=== PATIENT | female | born 1985 | race Caucasian/White ===

== ENCOUNTER 2016-06-19 13:07 | Emergency (ER) | payer MEDICAID ==
[~2016-06-19] VITALS: Ht 152.4 cm; Wt 76.7 kg
[~2016-06-19 13:07] MED LIST: ARIP5TAB13; ATOM40CA; CARI250T8; FLUT0.0531; GABA600T; IBUP800T41; LORA-655; LORANTIDINE; SERT-135; SOMA; TRAM-297; VENL25TA2
[2016-06-19] MEDS ORDERED: SODIUM CHLORIDE 0.9% 1,000 ML IV ONE (14:12)
[2016-06-19 14:13] LABS: Basophils # (auto) 0 uL; Basophils % (auto) 0.8 % (0.0-2.0); Eosinophils # (auto) 0 uL; Hematocrit 37.7 % (36.0-46.0); Hemoglobin 12.4 g/dL (12.2-16.2); Lymphocytes % (auto) 31.8 % (10.0-50.0); Mean Corpuscular Hemoglobin 27.3 pg (28.0-32.0); Mean Corpuscular Hgb Conc. 32.9 g/dL (32.0-36.0); Mean Corpuscular Volume 82.8 fL (80.0-100.0); Mean Platelet Volume 7.9 fL (7.4-10.4); Monocytes # (auto) 0.6 uL; Monocytes % (auto) 9.8 % (0.0-12.0); Neutrophils # (auto) 3.7 uL; Neutrophils % (auto) 57.6 % (37.0-80.0); Platelet Count (auto) 386 10^3/uL (140-450); Red Cell Distribution Width 13.6 % (11.6-16.0); White Blood Cell 6.4 10^3/uL (4.4-10.8)
[2016-06-19 14:28] LABS: Acetaminophen < 2.0 ug/mL (10-30); Salicylate < 1.7 mg/dL (2.8-20.0)
[2016-06-19 14:40] LABS: Alkaline Phosphatase 51 U/L (45-117); Anion Gap 11 (5-15); Aspartate Aminotransferase 24 U/L (15-37); BUN/Creatinine Ratio 22.4; Bilirubin, Total 0.3 mg/dL (0.2-1.0); Blood Urea Nitrogen 15 mg/dL (7-18); Carbon Dioxide 25 mmol/L (21-32); Chloride 110 mmol/L (98-107); GFR African American 133 mL/min; GFR Non-African American 110 mL/min; Glucose 82 mg/dL (74-106); Potassium 3.9 mmol/L (3.5-5.1); Sodium 146 mmol/L (136-145); Total Protein 7.3 g/dL (6.4-8.2)
[2016-06-19] MEDS ORDERED: ONDANSETRON HCL 4 MG/2 ML VIAL ONE (15:52)
[2016-06-19] MEDS ORDERED: ONDANSETRON HCL 4 MG/2 ML VIAL IV ONE (16:00)
[2016-06-19 18:11] LABS: Urine Bilirubin Negative (Negative); Urine Blood Negative /uL (Negative); Urine Color Yellow (Yellow); Urine Glucose Normal (Normal); Urine Ketone Negative (Negative); Urine Nitrite Negative (Negative); Urine RBC <1 /hpf (0 - 4); Urine Squamous Epithelial Cell FEW /hpf (<5); Urine Urobilinogen Normal (Negative)
[2016-06-19] MEDS ORDERED: LORazepam 0.5 MG TAB PO ONE (19:45)
[2016-06-19] MEDS: LORazepam 0.5 MG TAB PO PRN (20:44)
[2016-06-19] MEDS: OLANZapine 5 MG TAB PO SCH (22:00)
[2016-06-19] MEDS: GABAPENTIN 300 MG CAP PO SCH (22:50)
[2016-06-19] MEDS: clonazePAM 0.5 MG TAB PO SCH (22:50)
[2016-06-19] MEDS: NAPROXEN 500 MG TAB PO SCH (22:50)
[2016-06-20] MEDS: GABAPENTIN 300 MG CAP PO SCH ×3 (05:59→22:54)
[2016-06-20] MEDS: clonazePAM 0.5 MG TAB PO SCH ×3 (05:59→22:53)
[2016-06-20] MEDS ORDERED: traMADol HCL 50 MG TAB PO ONE (09:00)
[2016-06-20] MEDS: NAPROXEN 500 MG TAB PO SCH ×2 (10:03→22:53)
[2016-06-20] MEDS: traMADol HCL 50 MG TAB PO PRN ×2 (13:05→17:40)
[2016-06-20] MEDS: LORazepam 0.5 MG TAB PO PRN (19:21)
[2016-06-20] MEDS: OLANZapine 5 MG TAB PO SCH (22:54)
[2016-06-21] MEDS: LORazepam 0.5 MG TAB PO PRN ×2 (02:42→10:21)
[2016-06-21] MEDS: traMADol HCL 50 MG TAB PO PRN (03:08)
[2016-06-21] MEDS: GABAPENTIN 300 MG CAP PO SCH (06:23)
[2016-06-21] MEDS: clonazePAM 0.5 MG TAB PO SCH (06:23)
[2016-06-21] MEDS ORDERED: LORazepam 0.5 MG TAB ONE (10:15)
[2016-06-21] MEDS: NAPROXEN 500 MG TAB PO SCH (10:16)
[2016-06-21 12:46] VITALS: BP 104/64
== END 2016-06-21 12:56 | disposition short-term general hospital (02) ==
LOC: EDBD 13:07 → ER 13:07 → EDUNIT# 13:07 → ER 06-21 12:56
DX: F31.9 Bipolar disorder, unspecified (principal); N39.0 Urinary tract infection, site not specified; F41.9 Anxiety disorder, unspecified; J45.909 Unspecified asthma, uncomplicated; R45.851 Suicidal ideations
CPT/HCPCS: 36415; 80053; 80320; 80329; 81001; 84702; 85025; 93005; 94761; 96361; 96374; 99285; G0434; J2405; J7030

== ENCOUNTER 2016-08-10 13:00 | Emergency (ER) | payer MEDICAID ==
[~2016-08-10] VITALS: Ht 152.4 cm; Wt 73.9 kg
[2016-08-10 13:26] VITALS: BP 132/80
[2016-08-10] MEDS ORDERED: KETOROLAC TROMETH 60MG/2ML VIAL IM ONE (13:45)
== END 2016-08-10 14:14 | disposition home or self-care (01) ==
LOC: ER 13:11
DX: G89.29 Other chronic pain (principal); M54.5 Low back pain; J45.909 Unspecified asthma, uncomplicated; Z87.440 Personal history of urinary (tract) infections; Z79.899 Other long term (current) drug therapy
CPT/HCPCS: 96372; 99283; J1885

== ENCOUNTER 2016-09-14 15:48 | Emergency (ER) | payer MEDICAID ==
[~2016-09-14] VITALS: Ht 152.4 cm; Wt 73.9 kg
[~2016-09-14 15:48] MED LIST changes: +CARI250T; -CARI250T8
[2016-09-14 16:32] VITALS: BP 119/73
[2016-09-14] MEDS ORDERED: KETOROLAC TROMETH 60MG/2ML VIAL IM ONE (17:00)
== END 2016-09-14 17:26 | disposition home or self-care (01) ==
LOC: ER 15:48
DX: G89.29 Other chronic pain (principal); M54.5 Low back pain; J45.909 Unspecified asthma, uncomplicated; Z87.440 Personal history of urinary (tract) infections; Z79.899 Other long term (current) drug therapy
CPT/HCPCS: 96372; 99283; J1885

== ENCOUNTER 2016-11-21 17:01 | Emergency (ER) | payer MEDICAID ==
[~2016-11-21] VITALS: Ht 152.4 cm; Wt 78.5 kg
[2016-11-21 17:08] VITALS: BP 138/90
[2016-11-21] MEDS ORDERED: KETOROLAC TROMETH 60MG/2ML VIAL IM ONE (19:45)
== END 2016-11-21 20:18 | disposition home or self-care (01) ==
LOC: ER 17:11
DX: G89.29 Other chronic pain (principal); M54.5 Low back pain; J45.909 Unspecified asthma, uncomplicated; Z98.51 Tubal ligation status; Z88.8 Allergy status to other drugs, medicaments and biological substances
CPT/HCPCS: 96372; 99283; J1885

== ENCOUNTER 2016-12-28 18:45 | Emergency (ER) | payer MEDICAID ==
[~2016-12-28] VITALS: Ht 152.4 cm; Wt 78.5 kg
[2016-12-28 20:02] LABS: Basophils # (auto) 0 uL; Basophils % (auto) 0.2 % (0.0-2.0); Eosinophils # (auto) 0 uL; Eosinophils % (auto) 0.3 % (0.0-7.0); Hematocrit 36.1 % (36.0-46.0); Lymphocytes # (auto) 1.2 uL; Lymphocytes % (auto) 26.4 % (10.0-50.0); Mean Corpuscular Hemoglobin 28.1 pg (28.0-32.0); Mean Corpuscular Hgb Conc. 33.3 g/dL (32.0-36.0); Mean Corpuscular Volume 84.5 fL (80.0-100.0); Mean Platelet Volume 7.2 fL (6.9-10.8); Monocytes # (auto) 0.4 uL; Monocytes % (auto) 10.3 % (0.0-12.0); Neutrophils # (auto) 2.7 uL; Neutrophils % (auto) 62.8 % (37.0-80.0); Nucleated Red Blood Cells % 0.1 %; Platelet Count (auto) 316 10^3/uL (140-450); Red Cell Distribution Width 12.7 % (11.8-14.3); White Blood Cell 4.4 10^3/uL (4.4-10.8)
[2016-12-28 20:18] LABS: Salicylate 2.3 mg/dL (2.8-20.0)
[2016-12-28 20:22] LABS: Acetaminophen < 2.0 ug/mL (10-30); Albumin 3.9 g/dL (3.4-5.0); Alkaline Phosphatase 56 U/L (45-117); Anion Gap 8 (5-15); Aspartate Aminotransferase 44 U/L (15-37); BUN/Creatinine Ratio 10.8; Bilirubin, Total 0.2 mg/dL (0.2-1.0); Blood Urea Nitrogen 8 mg/dL (7-18); Calcium 8.7 mg/dL (8.5-10.1); Carbon Dioxide 27 mmol/L (21-32); Chloride 98 mmol/L (98-107); GFR African American 118 mL/min; GFR Non-African American 97 mL/min; Glucose 100 mg/dL (74-106); Potassium 3.5 mmol/L (3.5-5.1); Sodium 133 mmol/L (136-145); Total Protein 7.1 g/dL (6.4-8.2)
[2016-12-28 21:00] LABS: Urine RBC None Seen /hpf (0 - 4)
[2016-12-28 21:24] LABS: Urine Bilirubin Negative (Negative); Urine Blood Negative /uL (Negative); Urine Color Yellow (Yellow); Urine Glucose Normal (Normal); Urine Ketone Negative (Negative); Urine Nitrite Negative (Negative); Urine Squamous Epithelial Cell FEW /hpf (<5); Urine Urobilinogen Normal (Negative); Urine pH 6.5 (5.0-8.0)
[2016-12-29] MEDS ORDERED: IBUPROFEN 600 MG TAB PO ONE ×2 (00:15→07:00)
[2016-12-29] MEDS: traMADol HCL 50 MG TAB PO SCH ×3 (08:00→23:17)
[2016-12-29] MEDS: CITALOPRAM HYDROBR 20 MG TAB PO SCH ×2 (10:00→23:17)
[2016-12-29] MEDS: GABAPENTIN 300 MG CAP PO SCH ×2 (14:08→23:17)
[2016-12-29] MEDS ORDERED: NITROFURANTOIN (MONO) 100 mg CAP PO ONE (14:15)
[2016-12-29] MEDS ORDERED: traZODone HCL 50 MG TAB PO SCH (22:00)
[2016-12-29] MEDS: NITROFURANTOIN (MONO) 100 mg CAP PO SCH (23:17)
[2016-12-30] MEDS ORDERED: GABAPENTIN 100 MG CAP ONE (05:57)
[2016-12-30] MEDS: GABAPENTIN 300 MG CAP PO SCH ×2 (06:03→15:20)
[2016-12-30] MEDS: traMADol HCL 50 MG TAB PO SCH ×2 (06:03→15:20)
[2016-12-30] MEDS: NITROFURANTOIN (MONO) 100 mg CAP PO SCH (10:35)
[2016-12-30 18:38] VITALS: BP 118/76
== END 2016-12-30 18:52 | disposition home or self-care (01) ==
LOC: ER 18:47
DX: F23 Brief psychotic disorder (principal); S61.512A Laceration without foreign body of left wrist, initial encounter; N39.0 Urinary tract infection, site not specified; J45.909 Unspecified asthma, uncomplicated; F41.9 Anxiety disorder, unspecified; F32.9 Major depressive disorder, single episode, unspecified; G89.29 Other chronic pain; M54.9 Dorsalgia, unspecified; Z98.51 Tubal ligation status; X78.9XXA Intentional self-harm by unspecified sharp object, initial encounter; Y93.89 Activity, other specified; Y92.89 Other specified places as the place of occurrence of the external cause; Y99.8 Other external cause status
CPT/HCPCS: 36415; 80053; 80307; 80320; 80329; 81001; 81025; 85025

== ENCOUNTER 2017-01-18 19:24 | Emergency (ER) | payer MEDICAID ==
[~2017-01-18] VITALS: Ht 152.4 cm; Wt 78.9 kg
[2017-01-18 19:30] VITALS: BP 139/70
== END 2017-01-18 20:40 | disposition left against medical advice (07) ==
LOC: ER 19:25
DX: T78.40XA Allergy, unspecified, initial encounter (principal); Z53.21 Procedure and treatment not carried out due to patient leaving prior to being seen by health care provider

== ENCOUNTER 2017-02-18 11:48 | Emergency (ER) | payer MEDICAID ==
[~2017-02-18] VITALS: Ht 165.1 cm; Wt 77.1 kg
[2017-02-18 12:16] VITALS: BP 126/74
[2017-02-18] MEDS ORDERED: KETOROLAC TROMETH 60MG/2ML VIAL IM ONE (12:30)
== END 2017-02-18 12:59 | disposition home or self-care (01) ==
LOC: ER 11:48 → EDUNIT# 11:48 → ER 12:59
DX: S39.012A Strain of muscle, fascia and tendon of lower back, initial encounter (principal); G89.29 Other chronic pain; J45.909 Unspecified asthma, uncomplicated; Z88.8 Allergy status to other drugs, medicaments and biological substances; W19.XXXA Unspecified fall, initial encounter; Y93.89 Activity, other specified; Y92.89 Other specified places as the place of occurrence of the external cause; Y99.8 Other external cause status
CPT/HCPCS: 96372; 99283; J1885

== ENCOUNTER 2017-03-31 18:41 | Emergency (ER) | payer MEDICAID ==
[~2017-03-31] VITALS: Ht 154.9 cm; Wt 77.6 kg
[2017-03-31 20:20] LABS: Basophils # (auto) 0 uL; Eosinophils # (auto) 0 uL; Hemoglobin 11.7 g/dL (12.2-16.2); Lymphocytes # (auto) 0.9 uL; Monocytes # (auto) 0.5 uL; Neutrophils # (auto) 6.4 uL; Nucleated Red Blood Cells % 0.1 %; White Blood Cell 7.8 10^3/uL (4.4-10.8)
[2017-03-31 20:22] LABS: Basophils % (auto) 0.2 % (0.0-2.0); Eosinophils % (auto) 0.2 % (0.0-7.0); Hematocrit 35.6 % (36.0-46.0); Mean Corpuscular Hemoglobin 26.5 pg (28.0-32.0); Mean Corpuscular Hgb Conc. 32.8 g/dL (32.0-36.0); Mean Corpuscular Volume 80.9 fL (80.0-100.0); Monocytes % (auto) 6.6 % (0.0-12.0); Platelet Count (auto) 421 10^3/uL (140-450); Red Cell Distribution Width 14.7 % (11.8-14.3)
[2017-03-31 20:36] LABS: Bilirubin, Total 0.2 mg/dL (0.2-1.0); Calcium 8.9 mg/dL (8.5-10.1); Potassium 4.1 mmol/L (3.5-5.1); Total Protein 7.9 g/dL (6.4-8.2)
[2017-03-31 20:36] LABS: Urine Bacteria FEW /hpf (None Seen); Urine Blood Negative /uL (Negative); Urine Specific Gravity 1.009 (1.001-1.035); Urine WBC 1 /hpf (0 - 5)
[2017-04-01] MEDS ORDERED: SODIUM CHLORIDE 0.9% 500 ML IV ONE (08:51)
[2017-04-01] MEDS ORDERED: PANTOPRAZOLE 40 MG/10 ML VIAL IV ONE (09:00)
[2017-04-01] MEDS ORDERED: ONDANSETRON HCL 4 MG/2 ML VIAL IV ONE (09:00)
[2017-04-01] MEDS ORDERED: metroNIDAZOLE 500MG/100ML 100 ML IV ONE (09:00)
[2017-04-01 09:24] VITALS: BP 135/85
[2017-04-01] MEDS ORDERED: HYDROcodone-ACET 5/325MG TAB PO ONE (10:45)
== END 2017-04-01 11:26 | disposition home or self-care (01) ==
LOC: ER 18:46
DX: R10.13 Epigastric pain (principal); Z83.3 Family history of diabetes mellitus; Z82.49 Family history of ischemic heart disease and other diseases of the circulatory system
CPT/HCPCS: 36415; 74176; 80053; 81001; 81025; 82150; 83690; 85025; 86677; 96365; 96375; 99285; C9113; J2405; J3490; J7040

== ENCOUNTER 2017-04-21 15:33 | Emergency (ER) | payer MEDICAID ==
[~2017-04-21] VITALS: Ht 152.4 cm; Wt 74.8 kg
[2017-04-21] MEDS ORDERED: KETOROLAC TROMETH 60MG/2ML VIAL IM ONE (17:45)
[2017-04-21 19:44] VITALS: BP 110/60
== END 2017-04-21 20:18 | disposition home or self-care (01) ==
LOC: ER 15:39
DX: G89.29 Other chronic pain (principal); M54.5 Low back pain; J45.909 Unspecified asthma, uncomplicated; E78.5 Hyperlipidemia, unspecified; Z79.899 Other long term (current) drug therapy; Z04.1 Encounter for examination and observation following transport accident; V89.2XXA Person injured in unspecified motor-vehicle accident, traffic, initial encounter; Y93.89 Activity, other specified; Y99.8 Other external cause status; Y92.410 Unspecified street and highway as the place of occurrence of the external cause
CPT/HCPCS: 72100; 96372; 99284; J1885

== ENCOUNTER 2017-08-24 19:03 | Emergency (ER) | payer MEDICAID ==
[~2017-08-24] VITALS: Ht 152.4 cm; Wt 806.9 kg
[2017-08-24 20:13] LABS: Urine Bacteria FEW /hpf (None Seen); Urine Blood Negative /uL (Negative); Urine Specific Gravity 1.005 (1.001-1.035); Urine WBC <1 /hpf (0 - 5)
[2017-08-24 20:23] LABS: Basophils # (auto) 0 uL; Basophils % (auto) 0.5 % (0.0-2.0); Eosinophils # (auto) 0 uL; Eosinophils % (auto) 0.4 % (0.0-7.0); Hematocrit 38.8 % (36.0-46.0); Hemoglobin 12.8 g/dL (12.2-16.2); Lymphocytes % (auto) 39.9 % (10.0-50.0); Mean Corpuscular Hemoglobin 27.3 pg (28.0-32.0); Mean Corpuscular Hgb Conc. 32.9 g/dL (32.0-36.0); Monocytes # (auto) 0.6 uL; Monocytes % (auto) 11.1 % (0.0-12.0); Neutrophils # (auto) 2.5 uL; Neutrophils % (auto) 48.1 % (37.0-80.0); Nucleated Red Blood Cells % 0.1 %; Platelet Count (auto) 302 10^3/uL (140-450); Red Blood Cells 4.68 10^6/uL (4.0-5.20); Red Cell Distribution Width 14.1 % (11.8-14.3); White Blood Cell 5.1 10^3/uL (4.4-10.8)
[2017-08-24] MEDS ORDERED: HYDROcodone-ACET 10/325MG TAB PO ONE (20:45)
[2017-08-24 20:46] LABS: Albumin 3.7 g/dL (3.4-5.0); BUN/Creatinine Ratio 6.7; Bilirubin, Total 0.1 mg/dL (0.2-1.0); Calcium 9.1 mg/dL (8.5-10.1); Potassium 3.9 mmol/L (3.5-5.1); Total Protein 7.6 g/dL (6.4-8.2)
[2017-08-24 21:39] VITALS: BP 111/66
== END 2017-08-24 21:41 | disposition home or self-care (01) ==
LOC: ER 19:03
DX: R10.30 Lower abdominal pain, unspecified (principal); J45.909 Unspecified asthma, uncomplicated; E78.5 Hyperlipidemia, unspecified; Z98.51 Tubal ligation status
CPT/HCPCS: 36415; 74176; 80053; 81001; 81025; 85025

== ENCOUNTER 2017-11-17 16:57 | Inpatient (IN) | payer MEDICAID ==
[~2017-11-17] VITALS: Ht 152.4 cm; Wt 81.0 kg
[2017-11-17 17:49] LABS: Basophils # (auto) 0 uL; Basophils % (auto) 0.7 % (0.0-2.0); Eosinophils # (auto) 0 uL; Eosinophils % (auto) 0.3 % (0.0-7.0); Hematocrit 39.1 % (36.0-46.0); Hemoglobin 12.8 g/dL (12.2-16.2); Lymphocytes # (auto) 2.1 uL; Lymphocytes % (auto) 34.5 % (10.0-50.0); Mean Corpuscular Hemoglobin 27.1 pg (28.0-32.0); Mean Corpuscular Hgb Conc. 32.8 g/dL (32.0-36.0); Mean Corpuscular Volume 82.5 fL (80.0-100.0); Monocytes # (auto) 0.6 uL; Monocytes % (auto) 10.6 % (0.0-12.0); Neutrophils # (auto) 3.3 uL; Neutrophils % (auto) 53.9 % (37.0-80.0); Nucleated Red Blood Cells % 0.2 %; Platelet Count (auto) 276 10^3/uL (140-450); Red Blood Cells 4.74 10^6/uL (4.0-5.20); Red Cell Distribution Width 15.1 % (11.8-14.3); White Blood Cell 6.1 10^3/uL (4.4-10.8)
[2017-11-17 17:52] LABS: Urine Bacteria NONE SEEN /hpf (None Seen); Urine Blood Negative /uL (Negative); Urine Specific Gravity 1.002 (1.001-1.035); Urine WBC <1 /hpf (0 - 5)
[2017-11-17 18:04] LABS: Albumin 3.7 g/dL (3.4-5.0); BUN/Creatinine Ratio 4.8; Calcium 8.6 mg/dL (8.5-10.1); Potassium 3.6 mmol/L (3.5-5.1)
[2017-11-17 18:07] LABS: Bilirubin, Total 0.3 mg/dL (0.2-1.0); Total Protein 7.8 g/dL (6.4-8.2)
[2017-11-18] MEDS ORDERED: metroNIDAZOLE 500 MG TAB PO ONE (00:45)
[2017-11-18] MEDS ORDERED: cefTRIAXone 1GM/10ml IVPUSH 10 ML IV ONE (00:45)
[2017-11-18 01:42] LABS: Hematocrit 35.6 % (36.0-46.0)
[2017-11-18] MEDS ORDERED: ONDANSETRON HCL 4 MG/2 ML VIAL IV PRN (03:15)
[2017-11-18] MEDS ORDERED: ACETAMINOPHEN 325 MG TAB PO PRN (03:15)
[2017-11-18] MEDS: SODIUM CHLORIDE 0.9% 1,000 ML IV SCH ×2 (03:36→18:01)
[2017-11-18 05:00] VITALS: BP 101/71
[2017-11-18 05:03] VITALS: BP 101/71
[2017-11-18] MEDS ORDERED: GABA-339 PO (05:35)
[2017-11-18] MEDS ORDERED: RISP0.2512 PO (05:35)
[2017-11-18] MEDS ORDERED: [UNRECOGNIZED DRUG - CODE] PO (05:35)
[2017-11-18] MEDS ORDERED: DIVA500T53 PO (05:35)
[2017-11-18] MEDS ORDERED: TRAM50TA2 PO (05:35)
[2017-11-18] MEDS ORDERED: FENO48TA6 PO (05:35)
[2017-11-18] MEDS ORDERED: OMEP20TA PO (05:35)
[2017-11-18] MEDS ORDERED: AMIT50TA3 PO (05:35)
[2017-11-18] MEDS ORDERED: DOCU-94 PO (05:35)
[2017-11-18] MEDS ORDERED: ALBUAER3 IN (05:35)
[2017-11-18 08:15] LABS: Hematocrit 39.1 % (36.0-46.0); Hemoglobin 12.9 g/dL (12.2-16.2)
[2017-11-18] MEDS: HYDROcodone-ACET 5/325MG TAB PO PRN ×2 (09:43→18:29)
[2017-11-18 10:00] VITALS: BP 117/78
[2017-11-18] MEDS ORDERED: PANTOPRAZOLE 40 MG/10 ML VIAL IV SCH (10:00)
[2017-11-18 12:50] VITALS: BP 121/61
[2017-11-18] MEDS ORDERED: GOLYTELY 4L KIT PO ONE (15:15)
[2017-11-18 17:00] VITALS: BP 120/74
[2017-11-18] MEDS ORDERED: AMITRIPTYLINE HCL 25 MG TAB PO SCH (22:00)
[2017-11-18] MEDS: risperiDONE 1 MG TAB PO SCH (22:25)
[2017-11-18 22:43] VITALS: BP 116/87
[2017-11-19] MEDS: SODIUM CHLORIDE 0.9% 1,000 ML IV SCH (03:31)
[2017-11-19] MEDS: HYDROcodone-ACET 5/325MG TAB PO PRN (03:32)
[2017-11-19 05:17] VITALS: BP 124/73
[2017-11-19] MEDS ORDERED: GOLYTELY 4L KIT PO ONE (06:00)
[2017-11-19 06:54] LABS: Basophils # (auto) 0 uL; Basophils % (auto) 0.2 % (0.0-2.0); Eosinophils # (auto) 0 uL; Eosinophils % (auto) 0.1 % (0.0-7.0); Hematocrit 40.6 % (36.0-46.0); Hemoglobin 13.7 g/dL (12.2-16.2); Lymphocytes # (auto) 1.5 uL; Lymphocytes % (auto) 30.9 % (10.0-50.0); Mean Corpuscular Hemoglobin 27.8 pg (28.0-32.0); Mean Corpuscular Hgb Conc. 33.7 g/dL (32.0-36.0); Mean Corpuscular Volume 82.7 fL (80.0-100.0); Monocytes # (auto) 0.5 uL; Monocytes % (auto) 9.7 % (0.0-12.0); Neutrophils # (auto) 2.9 uL; Neutrophils % (auto) 59.1 % (37.0-80.0); Nucleated Red Blood Cells % 0.1 %; Platelet Count (auto) 266 10^3/uL (140-450); Red Blood Cells 4.91 10^6/uL (4.0-5.20); Red Cell Distribution Width 14.8 % (11.8-14.3)
[2017-11-19 07:26] LABS: Bilirubin, Total 0.4 mg/dL (0.2-1.0); Calcium 9.5 mg/dL (8.5-10.1); Potassium 3.8 mmol/L (3.5-5.1); Total Protein 8.1 g/dL (6.4-8.2)
[2017-11-19 08:06] LABS: INR 0.98 (0.9-1.15); Partial Thromboplastin Time 27.2 sec (23.78-33.04); Prothrombin Time 10.5 sec (9.27-12.13)
[2017-11-19] MEDS ORDERED: NALOXONE HCL 0.4 MG/ML VIAL ONE (08:14)
[2017-11-19] MEDS ORDERED: FLUMAZENIL 0.1 MG/ML INJ 10ML MDV IV ONE (08:14)
[2017-11-19] MEDS ORDERED: LIDOCAINE VISCOUS 2% 15ML UD ONE (08:15)
[2017-11-19] MEDS ORDERED: diphenhdrAMINE HCL 50 MG/1 ML VL ONE (08:15)
[2017-11-19] MEDS ORDERED: SODIUM CHLORIDE LOCK 10 ML ONE (08:15)
[2017-11-19 09:00] VITALS: BP 109/83
[2017-11-19] MEDS: MIDAZOLAM HCL 5 MG/ML-1ML VIAL ONE ×3 (09:12→09:23)
[2017-11-19] MEDS: fentaNYL CITRATE 100 MCG/2 ML VL ONE ×2 (09:12→09:16)
[2017-11-19] MEDS ORDERED: fentaNYL CITRATE 100 MCG/2 ML VL ONE (09:19)
[2017-11-19] MEDS ORDERED: MIDAZOLAM HCL 5 MG/ML-1ML VIAL ONE (09:19)
[2017-11-19] MEDS ORDERED: PNEUMOCOCCAL VACC POLYS 25 MCG/0.5 ML VIAL IM ONE (10:00)
[2017-11-19] MEDS ORDERED: PANTOPRAZOLE 40 MG TAB PO SCH (10:00)
[2017-11-19 10:10] VITALS: BP 123/70
[2017-11-19] MEDS: risperiDONE 1 MG TAB PO SCH (10:54)
[2017-11-19] MEDS ORDERED: GABAPENTIN 300 MG CAP PO SCH (14:00)
== END 2017-11-19 13:00 | disposition home or self-care (01) | DRG 241 ==
LOC: ER 17:01 → OVERFLOW 17:02 → WEST WING 11-18 04:42
PROVIDERS: ADMIT Nurse Practitioner; ATTEND Internal Medicine
PROC: 0DB68ZX Excision of Stomach, Via Natural or Artificial Opening Endoscopic, Diagnostic (ICD-10-PCS; principal; 2017-11-19 09:09)
PROC: 0DJD8ZZ Inspection of Lower Intestinal Tract, Via Natural or Artificial Opening Endoscopic (ICD-10-PCS; 2017-11-19 09:09)
DX: K29.71 Gastritis, unspecified, with bleeding (principal); K76.0 Fatty (change of) liver, not elsewhere classified; K72.90 Hepatic failure, unspecified without coma; K52.9 Noninfective gastroenteritis and colitis, unspecified; K64.4 Residual hemorrhoidal skin tags; D64.9 Anemia, unspecified; J45.909 Unspecified asthma, uncomplicated; E78.5 Hyperlipidemia, unspecified; M54.9 Dorsalgia, unspecified; F41.9 Anxiety disorder, unspecified; F32.9 Major depressive disorder, single episode, unspecified; Z23 Encounter for immunization; Z82.49 Family history of ischemic heart disease and other diseases of the circulatory system; Z83.3 Family history of diabetes mellitus; Z88.5 Allergy status to narcotic agent; Z98.51 Tubal ligation status
CPT/HCPCS: 36415; 43239; 45378; 74176; 76705; 80053; 81001; 81025; 82270; 85014; 85018; 85025; 85610; 85730; 86850; 86900; 86901; 87045; 87899; A6257; C9113; J2250

== ENCOUNTER 2018-01-19 17:13 | Inpatient (IN) | payer MEDICAID ==
[~2018-01-19] VITALS: Ht 152.4 cm; Wt 85.7 kg
[~2018-01-19 17:13] MED LIST changes: +ALBUAER3 IN; +AMIT50TA3 PO; -ARIP5TAB13; -ATOM40CA; -CARI250T; +DIVA500T53 PO; +DOCU-94 PO; +FENO48TA6 PO; -FLUT0.0531; +GABA-339 PO; -GABA600T; -IBUP800T41; -LORA-655; -LORANTIDINE; +OMEP20TA PO; +RISP0.2512 PO; -SERT-135; -SOMA; -TRAM-297; +TRAM50TA2 PO; -VENL25TA2; +[UNRECOGNIZED DRUG - CODE] PO
[2018-01-19 19:06] LABS: Basophils # (auto) 0 uL; Basophils % (auto) 0.4 % (0.0-2.0); Eosinophils # (auto) 0 uL; Eosinophils % (auto) 0.2 % (0.0-7.0); Hematocrit 37.9 % (36.0-46.0); Hemoglobin 12.6 g/dL (12.2-16.2); Lymphocytes # (auto) 1.9 uL; Lymphocytes % (auto) 38.6 % (10.0-50.0); Mean Corpuscular Hemoglobin 27.5 pg (28.0-32.0); Mean Corpuscular Hgb Conc. 33.2 g/dL (32.0-36.0); Mean Corpuscular Volume 82.8 fL (80.0-100.0); Monocytes # (auto) 0.7 uL; Monocytes % (auto) 14.6 % (0.0-12.0); Neutrophils # (auto) 2.3 uL; Neutrophils % (auto) 46.2 % (37.0-80.0); Nucleated Red Blood Cells % 0.2 %; Platelet Count (auto) 290 10^3/uL (140-450); Red Blood Cells 4.57 10^6/uL (4.0-5.20); Red Cell Distribution Width 14.8 % (11.8-14.3); White Blood Cell 4.9 10^3/uL (4.4-10.8)
[2018-01-19 19:20] LABS: Albumin 3.9 g/dL (3.4-5.0); BUN/Creatinine Ratio 9.4; Calcium 8.4 mg/dL (8.5-10.1)
[2018-01-19 19:23] LABS: Bilirubin, Total 0.2 mg/dL (0.2-1.0); Total Protein 7.7 g/dL (6.4-8.2)
[2018-01-19 19:30] LABS: Urine Bacteria FEW /hpf (None Seen); Urine Blood Negative /uL (Negative); Urine WBC 1 /hpf (0 - 5)
[2018-01-20] MEDS ORDERED: HYDROcodone-ACET 5/325MG TAB PO ONE (00:30)
[2018-01-20] MEDS ORDERED: ALBUTEROL SULF 2.5 MG/0.5ML(0.5%) NEB SOLN NEB PRN (01:15)
[2018-01-20] MEDS ORDERED: ACETAMINOPHEN 325 MG TAB PO PRN (01:15)
[2018-01-20] MEDS ORDERED: ONDANSETRON HCL 4 MG/2 ML VIAL IV PRN (01:15)
[2018-01-20] MEDS ORDERED: TEMAZEPAM 15 MG CAP PO PRN (01:15)
[2018-01-20 02:45] LABS: Hemoglobin 12.1 g/dL (12.2-16.2)
[2018-01-20] MEDS: GABAPENTIN 400 MG CAP PO SCH ×3 (05:30→21:26)
[2018-01-20 09:22] VITALS: BP 132/81
[2018-01-20] MEDS ORDERED: DIPH25CA46 PO (10:05)
[2018-01-20] MEDS ORDERED: RISP0.5T12 PO (10:05)
[2018-01-20] MEDS ORDERED: TIZA4TAB9 PO (10:05)
[2018-01-20] MEDS ORDERED: HYDR-4683 PO (10:05)
[2018-01-20] MEDS ORDERED: PANT40TA2 PO (10:05)
[2018-01-20] MEDS ORDERED: FLUT0.05 NAS (10:05)
[2018-01-20] MEDS: PANTOPRAZOLE 40 MG/10 ML VIAL IV SCH (10:09)
[2018-01-20 11:40] VITALS: BP 134/86
[2018-01-20 12:17] VITALS: BP 134/86
[2018-01-20] MEDS: HYDROcodone-ACET 5/325MG TAB PO PRN (16:14)
[2018-01-20 16:42] VITALS: BP 130/76
[2018-01-20 20:00] VITALS: BP_SYST 124; BP_SYST 133; BP_DIAS 76; BP_DIAS 81
[2018-01-20 21:53] VITALS: BP 124/81
[2018-01-20] MEDS ORDERED: AMITRIPTYLINE HCL 25 MG TAB PO SCH (22:00)
[2018-01-21] MEDS: HYDROcodone-ACET 5/325MG TAB PO PRN ×2 (04:02→09:46)
[2018-01-21 05:10] VITALS: BP 116/71
[2018-01-21] MEDS: GABAPENTIN 400 MG CAP PO SCH (05:59)
[2018-01-21 06:31] LABS: Basophils # (auto) 0 uL; Basophils % (auto) 0.1 % (0.0-2.0); Eosinophils # (auto) 0 uL; Eosinophils % (auto) 0.3 % (0.0-7.0); Hematocrit 37.9 % (36.0-46.0); Hemoglobin 12.5 g/dL (12.2-16.2); Lymphocytes # (auto) 1.8 uL; Lymphocytes % (auto) 35.4 % (10.0-50.0); Mean Corpuscular Hemoglobin 27.1 pg (28.0-32.0); Mean Corpuscular Volume 82.2 fL (80.0-100.0); Monocytes # (auto) 0.6 uL; Monocytes % (auto) 12.1 % (0.0-12.0); Neutrophils # (auto) 2.6 uL; Neutrophils % (auto) 52.1 % (37.0-80.0); Nucleated Red Blood Cells % 0.2 %; Platelet Count (auto) 288 10^3/uL (140-450); Red Blood Cells 4.62 10^6/uL (4.0-5.20); Red Cell Distribution Width 14.7 % (11.8-14.3)
[2018-01-21 06:49] LABS: Albumin 3.3 g/dL (3.4-5.0); Calcium 8.8 mg/dL (8.5-10.1); Potassium 3.8 mmol/L (3.5-5.1)
[2018-01-21 06:53] LABS: BUN/Creatinine Ratio 8.5; Bilirubin, Total 0.3 mg/dL (0.2-1.0); Total Protein 7.1 g/dL (6.4-8.2)
[2018-01-21 09:00] VITALS: BP 121/78
[2018-01-21] MEDS: PANTOPRAZOLE 40 MG/10 ML VIAL IV SCH (09:41)
[2018-01-21 12:53] VITALS: BP 121/78
[2018-01-21 13:00] VITALS: BP 118/75
== END 2018-01-21 14:57 | disposition home or self-care (01) | DRG 254 ==
LOC: ER 17:21 → OVERFLOW 17:22 → CENTRAL 01-20 11:27
PROVIDERS: ADMIT Nurse Practitioner; ATTEND Internal Medicine
DX: K64.4 Residual hemorrhoidal skin tags (principal); E44.1 Mild protein-calorie malnutrition; F32.9 Major depressive disorder, single episode, unspecified; F41.9 Anxiety disorder, unspecified; Z80.7 Family history of other malignant neoplasms of lymphoid, hematopoietic and related tissues; E78.5 Hyperlipidemia, unspecified; Z83.3 Family history of diabetes mellitus; Z82.49 Family history of ischemic heart disease and other diseases of the circulatory system; Z98.51 Tubal ligation status; Z79.899 Other long term (current) drug therapy; Z88.8 Allergy status to other drugs, medicaments and biological substances; Z68.36 Body mass index [BMI] 36.0-36.9, adult
CPT/HCPCS: 36415; 74176; 80053; 81001; 81025; 82270; 85014; 85018; 85025; 96374; C9113

== ENCOUNTER 2018-03-31 02:47 | Emergency (ER) | payer MEDICAID ==
[~2018-03-31] VITALS: Ht 152.4 cm; Wt 87.5 kg
[~2018-03-31 02:47] MED LIST changes: +DIPH25CA46 PO; -DOCU-94 PO; +FLUT0.05 NAS; +HYDR-4683 PO; +PANT40TA2 PO; -RISP0.2512 PO; +RISP0.5T12 PO; +TIZA4TAB9 PO; -TRAM50TA2 PO
[2018-03-31 07:25] LABS: Basophils # (auto) 0 uL; Eosinophils # (auto) 0 uL; Lymphocytes # (auto) 1.3 uL; Mean Corpuscular Hemoglobin 26.7 pg (28.0-32.0); Neutrophils # (auto) 6.1 uL
[2018-03-31 07:28] LABS: Basophils % (auto) 0.1 % (0.0-2.0); Hematocrit 40.4 % (36.0-46.0); Hemoglobin 13.4 g/dL (12.2-16.2); Lymphocytes % (auto) 15.9 % (10.0-50.0); Monocytes # (auto) 0.6 uL; Platelet Count (auto) 307 10^3/uL (140-450); Red Blood Cells 4.99 10^6/uL (4.0-5.20); Red Cell Distribution Width 15.4 % (11.8-14.3)
[2018-03-31 07:42] LABS: INR 0.97 (0.9-1.15); Prothrombin Time 10.4 sec (9.27-12.13)
[2018-03-31 07:43] LABS: Albumin 3.8 g/dL (3.4-5.0); Amylase 25 U/L (25-115); Anion Gap 8 (5-15); Blood Urea Nitrogen 12 mg/dL (7-18); Calcium 9.1 mg/dL (8.5-10.1); Carbon Dioxide 26 mmol/L (21-32); Chloride 103 mmol/L (98-107); Glucose 97 mg/dL (74-106); Lipase 109 U/L (73-393); Sodium 137 mmol/L (136-145)
[2018-03-31 07:50] LABS: Alanine Aminotransferase 50 U/L (13-56); Alkaline Phosphatase 62 U/L (45-117); Aspartate Aminotransferase 29 U/L (15-37); BUN/Creatinine Ratio 12.4; Bilirubin, Total 0.3 mg/dL (0.2-1.0); GFR African American 86 mL/min; GFR Non-African American 71 mL/min; Total Protein 7.9 g/dL (6.4-8.2)
[2018-03-31 08:50] VITALS: BP 114/87
[2018-03-31 09:13] LABS: Urine Bacteria FEW /hpf (None Seen); Urine Blood Negative /uL (Negative); Urine Specific Gravity 1.017 (1.001-1.035); Urine WBC 4 /hpf (0 - 5)
== END 2018-03-31 09:47 | disposition home or self-care (01) ==
LOC: ER 02:53
DX: N39.0 Urinary tract infection, site not specified (principal); K80.80 Other cholelithiasis without obstruction; R11.0 Nausea; Z88.8 Allergy status to other drugs, medicaments and biological substances; Z79.899 Other long term (current) drug therapy; Z98.51 Tubal ligation status
CPT/HCPCS: 36415; 74176; 80053; 81001; 81025; 82150; 83690; 84484; 85025; 85610; 85730

== ENCOUNTER 2018-06-05 10:09 | Emergency (ER) | payer MEDICAID ==
[~2018-06-05] VITALS: Ht 152.4 cm; Wt 89.4 kg
[2018-06-05 10:26] VITALS: BP 129/93
[2018-06-05 10:56] LABS: Basophils # (auto) 0 uL; Basophils % (auto) 0.4 % (0.0-2.0); Eosinophils # (auto) 0 uL; Eosinophils % (auto) 0.1 % (0.0-7.0); Lymphocytes # (auto) 1.5 uL; Mean Corpuscular Hgb Conc. 32.5 g/dL (32.0-36.0); Monocytes # (auto) 0.5 uL; Nucleated Red Blood Cells % 0.2 %
[2018-06-05 10:58] LABS: Hemoglobin 12.7 g/dL (12.2-16.2); Lymphocytes % (auto) 28.1 % (10.0-50.0); Mean Corpuscular Hemoglobin 26.8 pg (28.0-32.0); Mean Corpuscular Volume 82.5 fL (80.0-100.0); Monocytes % (auto) 8.5 % (0.0-12.0); Neutrophils # (auto) 3.4 uL; Neutrophils % (auto) 62.9 % (37.0-80.0); Platelet Count (auto) 273 10^3/uL (140-450); Red Blood Cells 4.73 10^6/uL (4.0-5.20); Red Cell Distribution Width 15.8 % (11.8-14.3); White Blood Cell 5.5 10^3/uL (4.4-10.8)
[2018-06-05 11:09] LABS: Albumin 3.6 g/dL (3.4-5.0); Calcium 8.6 mg/dL (8.5-10.1); Potassium 3.8 mmol/L (3.5-5.1)
[2018-06-05 11:12] LABS: Bilirubin, Total 0.1 mg/dL (0.2-1.0); Total Protein 7.4 g/dL (6.4-8.2)
[2018-06-05] MEDS ORDERED: LACTULOSE 20Gm/30ML SOLN PO ONE (13:30)
== END 2018-06-05 13:58 | disposition home or self-care (01) ==
LOC: ER 10:12
DX: K64.4 Residual hemorrhoidal skin tags (principal); K59.00 Constipation, unspecified; Z88.8 Allergy status to other drugs, medicaments and biological substances; Z79.899 Other long term (current) drug therapy; Z98.51 Tubal ligation status
CPT/HCPCS: 36415; 80053; 85025

== ENCOUNTER 2019-12-26 11:13 | Inpatient (IN) | payer MEDICAID ==
[~2019-12-26] VITALS: Ht 160 cm; Wt 87.7 kg
[~2019-12-26 11:13] MED LIST changes: +FENO48TA12 PO; -FENO48TA6 PO; -HYDR-4683 PO; +HYDR-4833 PO
[2019-12-26] MEDS ORDERED: SODIUM CHLORIDE 0.9% 1,000 ML IV ONE (11:22)
[2019-12-26 11:44] LABS: Basophils # (auto) 0 10 ^3/uL (0-0.2); Basophils % (auto) 0.2 % (0.0-2.0); Eosinophils # (auto) 0.4 10 ^3/uL (0-0.8); Eosinophils % (auto) 8.4 % (0.0-7.0); Hematocrit 33.9 % (36.0-46.0); Hemoglobin 11.1 g/dL (12.2-16.2); Lymphocytes % (auto) 36.9 % (10.0-50.0); Mean Corpuscular Hemoglobin 28.9 pg (28.0-32.0); Mean Corpuscular Hgb Conc. 32.8 g/dL (32.0-36.0); Mean Corpuscular Volume 87.9 fL (80.0-100.0); Monocytes # (auto) 0.5 10 ^3/uL (0-1.3); Monocytes % (auto) 8.9 % (0.0-12.0); Neutrophils # (auto) 2.4 10 ^3/uL (1.6-8.6); Neutrophils % (auto) 45.6 % (37.0-80.0); Nucleated Red Blood Cells % 0.3 %; Platelet Count (auto) 216 10^3/uL (140-450); Red Blood Cells 3.86 10^6/uL (4.0-5.20); Red Cell Distribution Width 15.2 % (11.8-14.3); White Blood Cell 5.3 10^3/uL (4.4-10.8)
[2019-12-26 12:06] LABS: Chloride 111 mmol/L (98-107); Potassium 3.2 mmol/L (3.5-5.1); Sodium 141 mmol/L (136-145)
[2019-12-26 12:19] LABS: Alanine Aminotransferase 32 U/L (13-56); Albumin 3.2 g/dL (3.4-5.0); Alkaline Phosphatase 38 U/L (45-117); Anion Gap 9 (5-15); Aspartate Aminotransferase 56 U/L (15-37); BUN/Creatinine Ratio 3.7; Bilirubin, Total 0.8 mg/dL (0.2-1.0); Blood Urea Nitrogen 3 mg/dL (7-18); Calcium 8.8 mg/dL (8.5-10.1); Carbon Dioxide 21 mmol/L (21-32); GFR African American 104 mL/min; GFR Non-African American 86 mL/min; Glucose 88 mg/dL (74-106); Magnesium 2.2 mg/dL (1.6-2.6); Total Protein 6.4 g/dL (6.4-8.2)
[2019-12-26 13:48] LABS: Urine Bacteria FEW /hpf (None Seen); Urine Blood Negative /uL (Negative); Urine Mucus FEW (None Seen); Urine Specific Gravity 1.012 (1.001-1.035); Urine WBC 19 /hpf (0 - 5)
[2019-12-26] MEDS ORDERED: POTASSIUM CHL 20MEQ/100ML 100 ML IV ONE (14:15)
[2019-12-26] MEDS: cefTRIAXone 1GM/50ML D5W 50 ML IV ONE ×2 (14:56→15:45)
[2019-12-26] MEDS ORDERED: LACTULOSE 20Gm/30ML SOLN PO PRN (15:00)
[2019-12-26] MEDS ORDERED: ONDANSETRON HCL 4 MG/2 ML VIAL IV PRN (15:00)
[2019-12-26] MEDS ORDERED: TEMAZEPAM 15 MG CAP PO PRN (15:00)
[2019-12-26] MEDS ORDERED: ACETAMINOPHEN 325 MG TAB PO PRN (15:00)
[2019-12-26] MEDS ORDERED: NITROGLYCERIN 0.4 MG SL TAB SL PRN (15:00)
[2019-12-26] MEDS ORDERED: MORPHINE SULF INJ 2 MG/ML SYRINGE 1ML IV PRN (15:00)
[2019-12-26] MEDS ORDERED: ALBUTEROL SULF 2.5 MG/0.5ML(0.5%) NEB SOLN NEB PRN (15:15)
[2019-12-26 15:49] VITALS: BP 100/33
[2019-12-26] MEDS: SOD CHL 0.45% 1,000 ML IV SCH ×2 (15:55→23:17)
[2019-12-26] MEDS: POLYETHYLENE GLYCOL 17 GM PWDR PO SCH (15:55)
[2019-12-26 16:02] LABS: Alcohol, Urine < 3.0 mg/dL (0-10); Amphetamine Screen, Urine NEGATIVE (NEGATIVE); Barbiturate Scree,Urine NEGATIVE (NEGATIVE); Benzodiazephine Screen, Urine NEGATIVE (NEGATIVE); Cannabinoid Screen, Urine NEGATIVE (NEGATIVE); Cocaine Screen, Urine NEGATIVE (NEGATIVE); Opiate Scree,Urine NEGATIVE (NEGATIVE); Phencyclidine Screen, Urine NEGATIVE (NEGATIVE)
[2019-12-26] MEDS ORDERED: FLUT50SP28 (16:54)
[2019-12-26] MEDS ORDERED: RISP2TAB62 PO (16:54)
[2019-12-26] MEDS ORDERED: TRAM50TA2 PO (16:54)
[2019-12-26] MEDS ORDERED: FENO160T8 PO (16:54)
[2019-12-26] MEDS ORDERED: TOPI100T68 PO (16:54)
[2019-12-26] MEDS ORDERED: ONDA-188 PO (16:54)
[2019-12-26] MEDS ORDERED: CLOP75TA41 PO (16:54)
[2019-12-26] MEDS ORDERED: OMEP-263 PO (16:54)
[2019-12-26 19:50] VITALS: BP 115/65
[2019-12-26 22:00] VITALS: BP 115/65
[2019-12-26] MEDS ORDERED: DIVALPROEX SODIUM 500 MG PO SCH (22:00)
[2019-12-26] MEDS: DOCUSATE SOD 100 MG CAP PO SCH (22:25)
[2019-12-26] MEDS: RISPERIDONE 2 MG PO SCH (22:25)
[2019-12-26] MEDS: HYDROcodone-ACET 10/325MG TAB PO PRN (22:26)
[2019-12-27 05:00] VITALS: BP 105/57
[2019-12-27 06:45] LABS: Basophils # (auto) 0 10 ^3/uL (0-0.2); Basophils % (auto) 0.4 % (0.0-2.0); Eosinophils # (auto) 0.3 10 ^3/uL (0-0.8); Eosinophils % (auto) 7.5 % (0.0-7.0); Lymphocytes # (auto) 1.8 10 ^3/uL (0.4-5.4); Lymphocytes % (auto) 44.6 % (10.0-50.0); Mean Corpuscular Hemoglobin 29.2 pg (28.0-32.0); Mean Corpuscular Hgb Conc. 33.4 g/dL (32.0-36.0); Mean Corpuscular Volume 87.6 fL (80.0-100.0); Monocytes # (auto) 0.4 10 ^3/uL (0-1.3); Monocytes % (auto) 10.9 % (0.0-12.0); Neutrophils # (auto) 1.4 10 ^3/uL (1.6-8.6); Neutrophils % (auto) 36.6 % (37.0-80.0); Nucleated Red Blood Cells % 0.2 %; Platelet Count (auto) 206 10^3/uL (140-450); Red Blood Cells 3.43 10^6/uL (4.0-5.20); Red Cell Distribution Width 15.3 % (11.8-14.3); White Blood Cell 3.9 10^3/uL (4.4-10.8)
[2019-12-27 07:03] LABS: Potassium 3.7 mmol/L (3.5-5.1)
[2019-12-27 07:37] LABS: BUN/Creatinine Ratio 5.6; Calcium 8.5 mg/dL (8.5-10.1)
[2019-12-27 09:00] VITALS: BP 94/60
[2019-12-27] MEDS: busPIRone HCL 10 MG TAB PO SCH (10:00)
[2019-12-27] MEDS: Fenofibrate 48 MG TAB PO SCH (10:00)
[2019-12-27] MEDS: DOCUSATE SOD 100 MG CAP PO SCH ×2 (10:24→21:54)
[2019-12-27] MEDS: POLYETHYLENE GLYCOL 17 GM PWDR PO SCH (10:24)
[2019-12-27] MEDS: CLOPIDOGREL BISULFATE 75 MG TAB PO SCH (10:24)
[2019-12-27] MEDS: RISPERIDONE 2 MG PO SCH ×2 (10:24→22:00)
[2019-12-27] MEDS: SODIUM CHLORIDE 0.9% 1,000 ML IV SCH (10:33)
[2019-12-27 13:00] VITALS: BP 95/56
[2019-12-27] MEDS ORDERED: cefTRIAXone 1GM/50ML D5W 50 ML IV SCH (15:00)
[2019-12-27] MEDS: HYDROcodone-ACET 10/325MG TAB PO PRN ×2 (15:01→20:05)
[2019-12-27 17:00] VITALS: BP 115/71
[2019-12-27 22:00] VITALS: BP 100/62
[2019-12-28] MEDS: SODIUM CHLORIDE 0.9% 1,000 ML IV SCH (00:39)
[2019-12-28 05:00] VITALS: BP 102/53
[2019-12-28 06:23] LABS: Basophils # (auto) 0 10 ^3/uL (0-0.2); Basophils % (auto) 0.5 % (0.0-2.0); Eosinophils # (auto) 0.3 10 ^3/uL (0-0.8); Eosinophils % (auto) 6.9 % (0.0-7.0); Hematocrit 29.6 % (36.0-46.0); Hemoglobin 10.1 g/dL (12.2-16.2); Lymphocytes # (auto) 1.6 10 ^3/uL (0.4-5.4); Lymphocytes % (auto) 42.6 % (10.0-50.0); Mean Corpuscular Hemoglobin 29.6 pg (28.0-32.0); Mean Corpuscular Hgb Conc. 34.1 g/dL (32.0-36.0); Mean Corpuscular Volume 86.8 fL (80.0-100.0); Monocytes # (auto) 0.4 10 ^3/uL (0-1.3); Monocytes % (auto) 11.9 % (0.0-12.0); Neutrophils # (auto) 1.4 10 ^3/uL (1.6-8.6); Neutrophils % (auto) 38.1 % (37.0-80.0); Nucleated Red Blood Cells % 0.1 %; Platelet Count (auto) 194 10^3/uL (140-450); White Blood Cell 3.8 10^3/uL (4.4-10.8)
[2019-12-28 06:42] LABS: Potassium 3.9 mmol/L (3.5-5.1)
[2019-12-28 06:47] LABS: Albumin 2.9 g/dL (3.4-5.0); BUN/Creatinine Ratio 10.1; Bilirubin, Total 0.2 mg/dL (0.2-1.0); Calcium 8.6 mg/dL (8.5-10.1); Total Protein 5.6 g/dL (6.4-8.2)
[2019-12-28 09:00] VITALS: BP 111/65
[2019-12-28] MEDS: busPIRone HCL 10 MG TAB PO SCH (09:12)
[2019-12-28] MEDS: RISPERIDONE 2 MG PO SCH (09:12)
[2019-12-28] MEDS: Fenofibrate 48 MG TAB PO SCH (09:13)
[2019-12-28] MEDS: CLOPIDOGREL BISULFATE 75 MG TAB PO SCH (09:13)
[2019-12-28] MEDS: POLYETHYLENE GLYCOL 17 GM PWDR PO SCH (09:13)
[2019-12-28] MEDS: DOCUSATE SOD 100 MG CAP PO SCH (09:13)
== END 2019-12-28 13:00 | disposition home or self-care (01) | DRG 463 ==
LOC: ER 11:13 → EDBD 11:13 → OVERFLOW 11:14 → WEST WING 19:50
PROVIDERS: ADMIT Student in an Organized Health Care Education/Training Program; ATTEND Internal Medicine
DX: N39.0 Urinary tract infection, site not specified (principal); E44.0 Moderate protein-calorie malnutrition; E87.6 Hypokalemia; K59.00 Constipation, unspecified; J45.909 Unspecified asthma, uncomplicated; F31.9 Bipolar disorder, unspecified; E78.5 Hyperlipidemia, unspecified; M54.9 Dorsalgia, unspecified; G89.29 Other chronic pain; E66.9 Obesity, unspecified; H53.8 Other visual disturbances; K58.9 Irritable bowel syndrome, unspecified; Z82.49 Family history of ischemic heart disease and other diseases of the circulatory system; Z83.3 Family history of diabetes mellitus; Z86.73 Personal history of transient ischemic attack (TIA), and cerebral infarction without residual deficits; Z98.51 Tubal ligation status; Z68.34 Body mass index [BMI] 34.0-34.9, adult
CPT/HCPCS: 36415; 70450; 71045; 76775; 80048; 80053; 80307; 81001; 83735; 84484; 85025; 87040; 87086; 93005; 96361; 96365; 96367; 96368; G0378; J0696; J3480

== ENCOUNTER 2020-09-16 04:18 | Emergency (ER) | payer MEDICAID ==
[~2020-09-16] VITALS: Ht 152.4 cm; Wt 83.0 kg
[~2020-09-16 04:18] MED LIST changes: +CLOP75TA70 PO; +DIVA500T2 PO; -DIVA500T53 PO; +FENO160T8 PO; -FENO48TA12 PO; -FLUT0.05 NAS; +FLUT50SP28; -GABA-339 PO; -HYDR-4833 PO; +OMEP-263 PO; -OMEP20TA PO; +ONDA-188 PO; -PANT40TA2 PO; -RISP0.5T12 PO; +RISP2TAB62 PO; -TIZA4TAB9 PO; +TOPI100T68 PO; +TRAM50TA2 PO; -[UNRECOGNIZED DRUG - CODE] PO
[2020-09-16] MEDS ORDERED: HYDROcodone-ACET 10/325MG TAB PO ONE (05:15)
[2020-09-16] MEDS ORDERED: ONDANSETRON ODT 4 MG TAB PO ONE (05:15)
[2020-09-16 07:31] VITALS: BP 101/72
== END 2020-09-16 08:06 | disposition home or self-care (01) ==
LOC: ER 04:18
DX: S92.351A Displaced fracture of fifth metatarsal bone, right foot, initial encounter for closed fracture (principal); J45.909 Unspecified asthma, uncomplicated; Z98.51 Tubal ligation status; Z86.73 Personal history of transient ischemic attack (TIA), and cerebral infarction without residual deficits; X58.XXXA Exposure to other specified factors, initial encounter; Y93.89 Activity, other specified; Y92.89 Other specified places as the place of occurrence of the external cause; Y99.8 Other external cause status
CPT/HCPCS: 29515; 73610; 99283; Q0162

== ENCOUNTER 2020-10-09 19:14 | Emergency (ER) | payer MEDICAID ==
[~2020-10-09] VITALS: Ht 152.4 cm; Wt 83.5 kg
[2020-10-09 19:14] VITALS: BP 151/95
[2020-10-09 20:53] LABS: Basophils # (auto) 0 10 ^3/uL (0-0.2); Basophils % (auto) 0.6 % (0.0-2.0); Eosinophils # (auto) 0.2 10 ^3/uL (0-0.8); Hematocrit 40.3 % (36.0-46.0); Hemoglobin 13.8 g/dL (12.2-16.2); Lymphocytes # (auto) 1.9 10 ^3/uL (0.4-5.4); Lymphocytes % (auto) 28.7 % (10.0-50.0); Mean Corpuscular Hgb Conc. 34.2 g/dL (32.0-36.0); Mean Corpuscular Volume 84.8 fL (80.0-100.0); Monocytes # (auto) 0.7 10 ^3/uL (0-1.3); Monocytes % (auto) 11.3 % (0.0-12.0); Neutrophils # (auto) 3.7 10 ^3/uL (1.6-8.6); Neutrophils % (auto) 56.4 % (37.0-80.0); Nucleated Red Blood Cells % 0.2 %; Platelet Count (auto) 342 10^3/uL (140-450); Red Blood Cells 4.75 10^6/uL (4.0-5.20); Red Cell Distribution Width 14.6 % (11.8-14.3); White Blood Cell 6.6 10^3/uL (4.4-10.8)
[2020-10-09 20:57] LABS: Urine Blood Negative /uL (Negative); Urine Specific Gravity 1.007 (1.001-1.035)
[2020-10-09 20:58] LABS: Urine Bacteria FEW /hpf (None Seen); Urine WBC 1 /hpf (0 - 5)
[2020-10-09 21:12] LABS: Albumin 3.5 g/dL (3.4-5.0); BUN/Creatinine Ratio 1.4; Calcium 9.3 mg/dL (8.5-10.1); Potassium 3.8 mmol/L (3.5-5.1)
[2020-10-09 21:15] LABS: Bilirubin, Total 0.3 mg/dL (0.2-1.0); Total Protein 7.5 g/dL (6.4-8.2)
== END 2020-10-09 21:49 | disposition left against medical advice (07) ==
LOC: ER 19:15
DX: R11.2 Nausea with vomiting, unspecified (principal); Z53.21 Procedure and treatment not carried out due to patient leaving prior to being seen by health care provider
CPT/HCPCS: 36415; 80053; 81001; 81025; 85025; 85049

== ENCOUNTER 2021-04-27 04:59 | Emergency (ER) | payer MEDICAID ==
[~2021-04-27] VITALS: Ht 152.4 cm; Wt 83.5 kg
[~2021-04-27 04:59] MED LIST changes: -AMIT50TA3 PO; +AMIT50TA5 PO; +DIPH-599 PO; -DIPH25CA46 PO
[2021-04-27] MEDS ORDERED: ALPRAZolam 0.5 MG TAB PO ONE (07:00)
[2021-04-27 07:22] VITALS: BP 109/74
== END 2021-04-27 07:51 | disposition home or self-care (01) ==
LOC: ER 04:59 → EDBD 04:59 → ER 07:51
DX: F41.1 Generalized anxiety disorder (principal); J45.909 Unspecified asthma, uncomplicated; Z98.51 Tubal ligation status; Z86.73 Personal history of transient ischemic attack (TIA), and cerebral infarction without residual deficits; Z88.6 Allergy status to analgesic agent

== ENCOUNTER 2021-08-25 20:14 | Emergency (ER) | payer MEDICAID ==
[~2021-08-25] VITALS: Ht 152.4 cm; Wt 77.1 kg
[2021-08-25 23:41] LABS: Urine Bacteria FEW /hpf (None Seen); Urine Blood Negative /uL (Negative); Urine Specific Gravity 1.013 (1.001-1.035); Urine WBC 1 /hpf (0 - 5)
[2021-08-26 00:10] VITALS: BP 114/70
== END 2021-08-26 00:16 | disposition home or self-care (01) ==
LOC: ER 20:19
DX: K42.9 Umbilical hernia without obstruction or gangrene (principal); K44.9 Diaphragmatic hernia without obstruction or gangrene; R91.1 Solitary pulmonary nodule; J45.909 Unspecified asthma, uncomplicated; Z86.73 Personal history of transient ischemic attack (TIA), and cerebral infarction without residual deficits; Z98.51 Tubal ligation status; Z88.6 Allergy status to analgesic agent
CPT/HCPCS: 74176; 81001; 81025

== ENCOUNTER 2021-10-18 13:53 | Emergency (ER) | payer MEDICAID ==
[2021-10-18 14:22] VITALS: BP 149/82
[2021-10-18 15:21] LABS: Basophils # (auto) 0.1 10 ^3/uL (0-0.2); Basophils % (auto) 0.9 % (0.0-2.0); Eosinophils # (auto) 0.6 10 ^3/uL (0-0.8); Eosinophils % (auto) 8.2 % (0.0-7.0); Hematocrit 40.7 % (36.0-46.0); Hemoglobin 13.1 g/dL (12.2-16.2); Lymphocytes # (auto) 2.1 10 ^3/uL (0.4-5.4); Lymphocytes % (auto) 26.4 % (10.0-50.0); Mean Corpuscular Hemoglobin 26.1 pg (28.0-32.0); Mean Corpuscular Hgb Conc. 32.2 g/dL (32.0-36.0); Mean Corpuscular Volume 80.9 fL (80.0-100.0); Monocytes # (auto) 0.6 10 ^3/uL (0-1.3); Monocytes % (auto) 8.2 % (0.0-12.0); Neutrophils # (auto) 4.4 10 ^3/uL (1.6-8.6); Neutrophils % (auto) 56.3 % (37.0-80.0); Red Blood Cells 5.03 10^6/uL (4.0-5.20); Red Cell Distribution Width 14.9 % (11.8-14.3); White Blood Cell 7.8 10^3/uL (4.4-10.8)
[2021-10-18 15:33] LABS: Albumin 3.7 g/dL (3.4-5.0); Calcium 10.2 mg/dL (8.5-10.1); Potassium 4.3 mmol/L (3.5-5.1)
[2021-10-18 15:37] LABS: BUN/Creatinine Ratio 15.6; Bilirubin, Total 0.3 mg/dL (0.2-1.0); Total Protein 8.5 g/dL (6.4-8.2)
== END 2021-10-18 17:09 | disposition home or self-care (01) ==
LOC: ER 13:53
DX: N92.0 Excessive and frequent menstruation with regular cycle (principal); J45.909 Unspecified asthma, uncomplicated; Z98.51 Tubal ligation status; Z86.73 Personal history of transient ischemic attack (TIA), and cerebral infarction without residual deficits; Z88.6 Allergy status to analgesic agent
CPT/HCPCS: 36415; 80053; 84702; 85025

== ENCOUNTER 2023-10-20 16:51 | Emergency (ER) | payer MEDICAID ==
[~2023-10-20] VITALS: Ht 162.6 cm; Wt 90.9 kg
[~2023-10-20 16:51] MED LIST changes: +AMIT50TA12 PO; -AMIT50TA5 PO; -DIPH-599 PO; +DIPH-751 PO; +DIVA-91 PO; -DIVA500T2 PO; +FENO160T PO; -FENO160T8 PO; -OMEP-263 PO; +OMEP-448 PO
[2023-10-20 18:40] LABS: Basophils # (auto) 0.1 10 ^3/uL (0-0.2); Basophils % (auto) 1.1 % (0.0-2.0); Eosinophils # (auto) 0.3 10 ^3/uL (0-0.8); Eosinophils % (auto) 2.8 % (0.0-7.0); Hematocrit 40.2 % (36.0-46.0); Hemoglobin 12.7 g/dL (12.2-16.2); Lymphocytes # (auto) 3.3 10 ^3/uL (0.4-5.4); Lymphocytes % (auto) 28.6 % (10.0-50.0); Mean Corpuscular Hemoglobin 24.8 pg (28.0-32.0); Mean Corpuscular Hgb Conc. 31.6 g/dL (32.0-36.0); Mean Corpuscular Volume 78.5 fL (80.0-100.0); Monocytes # (auto) 1.3 10 ^3/uL (0-1.3); Monocytes % (auto) 10.9 % (0.0-12.0); Neutrophils # (auto) 6.6 10 ^3/uL (1.6-8.6); Neutrophils % (auto) 56.6 % (37.0-80.0); Nucleated Red Blood Cells % 0.2 %; Red Blood Cells 5.12 10^6/uL (4.0-5.20); Red Cell Distribution Width 17.9 % (11.8-14.3); White Blood Cell 11.6 10^3/uL (4.4-10.8)
[2023-10-20 18:51] LABS: Chloride 100 mmol/L (98-107); Potassium 4.3 mmol/L (3.5-5.1); Sodium 138 mmol/L (136-145)
[2023-10-20 18:52] LABS: Anion Gap 8 (5-15); Calcium 9.3 mg/dL (8.7-10.4); Carbon Dioxide 30 mmol/L (20-30)
[2023-10-20 18:57] LABS: BUN/Creatinine Ratio 13.2 (10.0-20.0); Blood Urea Nitrogen 9 mg/dL (9-23); Glucose 88 mg/dL (74-106)
[2023-10-20 21:30] VITALS: BP 135/77; RESP 18; TEMP 99.2; O2SAT 96
[2023-10-20] MEDS ORDERED: CYCL-839 PO (21:38)
[2023-10-20 21:45] VITALS: PULSE 83
[2023-10-20] MEDS: KETOROLAC TROMETH 30 MG/ML 1ML VIAL IV ONE (21:54)
[2023-10-20] MEDS: FUROSEMIDE 40 MG/4 ML VIAL IV ONE (21:55)
== END 2023-10-20 22:08 | disposition home or self-care (01) ==
LOC: EDBD 16:51 → ER 16:51
DX: M79.605 Pain in left leg (principal); M79.604 Pain in right leg; M79.89 Other specified soft tissue disorders; F41.9 Anxiety disorder, unspecified; J45.909 Unspecified asthma, uncomplicated; F20.9 Schizophrenia, unspecified; R56.9 Unspecified convulsions; Z86.73 Personal history of transient ischemic attack (TIA), and cerebral infarction without residual deficits; Z98.51 Tubal ligation status; Z88.6 Allergy status to analgesic agent
CPT/HCPCS: 36415; 80048; 83880; 85025; 93970; 96374; 96375; 99285; J1885; J1940

== ENCOUNTER 2024-04-02 17:25 | Emergency (ER) | payer MEDICAID ==
[~2024-04-02] VITALS: Ht 165.1 cm; Wt 109.0 kg
[~2024-04-02 17:25] MED LIST changes: +CYCL-839 PO; +IBUP1TAB5 PO
[2024-04-02 17:36] VITALS: BP 154/101; RESP 20; O2SAT 96
[2024-04-02 17:39] VITALS: PULSE 76
--- NOTE | 2024-04-02 18:02 | ED.PDOC ---
History of Present Illness HPI Comments 38 year old female presents to the ED with chief complaint of dizziness. Patient reports that she has been experiencing dizziness with associated tremors and lightheadedness. Patient relays that she tested her BG and it was 305, remembering that she was advised by her PCP to come to the ED if her BG was ever 300+, so she came in today. Patient denies any N/V/D, excess thirst, chest pain, SOB, abdominal pain, or LOC. Chief Complaint: Dizziness Time Seen by MD: 17:59 Primary Care Provider: JOSH Reviewed Notes: Nurses Notes, Medications, Allergies Allergies: Coded Allergies: Latex (Verified Allergy, Unknown, 11/11/23) Meperidine (Verified Allergy, Unknown, 08/24/17) Home Meds Active Scripts Ibuprofen Micronized (Ibuprofen) 600 Mg Tab, 600 MG PO TIDWM for 10 Days, #30 TAB 0 Refills Prov:KRISTINE LUCAS [employer] WORK[employer] 11/11/23 Cyclobenzaprine Hcl (Cyclobenzaprine Hcl) 10 Mg Tab, 10 MG PO TIDPRN PRN, #20 TAB Prov:PARIS PRAKASH PAC 10/20/23 Reported Medications Tramadol Hcl (Tramadol Hcl) 50 Mg Tab, 50 MG PO BID, MG 12/26/19 Ondansetron HCl (Ondansetron Hydrochloride) 4 Mg Tab, 4 MG PO PRN, TAB 12/26/19 Clopidogrel Bisulfate (CLOPIDOGREL) 75 Mg Tab, 75 MG PO DAILY, MG 12/26/19 Topiramate (Topiramate) 100 Mg Tab, 100 MG PO HS for 30 Days, MG 12/26/19 Fluticasone Propionate (Nasal) (Allergy Relief) 50 Mcg/Act Spr, 2 SPRAYS NA QAM, SPRAY 12/26/19 Risperidone (Risperidone) 2 Mg Tab, 1 TAB PO BID, #30 TAB 1 Refill 12/26/19 Fenofibrate (Fenofibrate) 160 Mg Tab, 1 TAB PO QAM, #30 TAB 5 Refills 12/26/19 Omeprazole (Omeprazole Dr) 40 Mg Cap, 40 MG PO QAM, CAP 12/26/19 Diphenhydramine Hcl (Banophen) 25 Mg Cap, 25 MG PO QPM, CAP 01/20/18 Albuterol Sulfate (VENTOLIN MDI) 90 Mcg Ih, 2 PUFF IN Q4HPRN PRN for SHORTNESS OF BREATH 11/18/17 Amitriptyline Hcl (Amitriptyline Hcl) 50 Mg Tab, 1 TAB PO QPM, #30 TAB 1 Refill 11/18/17 Divalproex Sodium (Depakote) 500 Mg Tab, 1 TAB PO BID, #60 TAB 1 Refill 11/18/17 Information Source: Patient Mode of Arrival: Ambulatory Severity: Moderate Timing: Hours Duration: Since onset Prehospital treatment: None Past Medical History PAST MEDICAL HISTORY: Anxiety, Asthma, DM, GERD, Schizophrenia, Seizures, TIA, UTI'S Surgical History: Tubal Ligation 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 History Family History Family History: Reviewed,noncontributory to illness, No family hx of Cancer, No family hx of HTN, No family hx of Lung yoanna, Family hx of DM Social History Smoker: Non-Smoker Alcohol: Occasionally Drugs: Denies Drug Use Lives In: Home Constitutional: denies: chills, diaphoresis, fatigue, fever, malaise, sweats, weakness, others EENTM: denies: blurred vision, double vision, ear bleeding, ear discharge, ear drainage, ear pain, ear ringing, eye pain, eye redness, hearing loss, mouth pain, mouth swelling, nasal discharge, nose bleeding, nose congestion, nose pain, photophobia, tearing, throat pain, throat swelling, voice changes, others Respiratory: denies: cough, hemoptysis, orthopnea, SOB at rest, shortness of breath, SOB with excertion, stridor, wheezing, others Cardiovascular: reports: lightheadedness; denies: chest pain, dizzy spells, diaphoresis, Dyspnea on exertion, edema, irregular heart beat, left arm pain, palpitations, PND, syncope, others Gastrointestinal: denies: abdomen distended, abdominal pain, blood streaked bowels, constipated, diarrhea, dysphagia, difficulty swallowing, hematemesis, melena, nausea, poor appetite, poor fluid intake, rectal bleeding, rectal pain, vomiting, others Genitourinary: denies: abnormal vagina bleeding, burning, dyspareunia, dysuria, flank pain, frequency, hematuria, incontinence, pain, , vagina discharge, urgency, others Neurological: reports: dizziness, tremors; denies: fainting, headache, left sided numbness, left sided weakness, numbness, paresthesia, pre-existing deficit, right sided numbness, right sided weakness, seizure, speech problems, tingling, weakness, others Musculoskeletal: denies: back pain, gout, joint pain, joint swelling, muscle pain, muscle stiffness, neck pain, others Integumetry: denies: bruises, change in color, change in hair/nails, dryness, laceration, lesions, lumps, rash, wounds, others Allergic/Immunocompromised: denies: Difficulty Healing, Frequent Infections, Hives, Itching, others Hematologic/Lymphatic: denies: anemia, blood clots, easy bleeding, easy bruising, swollen glands, others Endocrine: denies: excessive hunger, excessive sweating, excessive thirst, excessive urination, flushing, intolerance to cold, intolerance to heat, unexplained weight gain, unexplained weight loss, others Psychiatric: denies: anxiety, bipolar disorder, depression, hopeless, panic disorder, schizophrenia, sleepless, suicidal, others All Other Systems: Reviewed and Negative Physical Exam General Appearance: No Apparent Distress, Normal HEENT: Normal ENT Inspection, PERRL/EOMI Neck: Full Range of Motion, Non-Tender, Normal, Normal Inspection Respiratory: Chest Non-Tender, Lungs Clear, No Accessory Muscle Use, No Respiratory Distress, Normal Breath Sounds Cardiovascular: No Edema, No JVD, No Murmur, No Gallop, Normal Peripheral Pu lses, Regular Rate/Rhythm Breast Exam: Deferred Gastrointestinal: No Organomegaly, Non Tender, No Pulsatile Mass, Normal Bowel Sounds, Soft Genitalia: Deferred Pelvic: Deferred Rectal: Deferred Extremities: No calf tenderness, Normal capillary refill, Normal inspection, Normal range of motion, Non-tender, No pedal edema Musculoskeletal : Apperance: Normal Neurologic: Alert, baker test II-XII nml as Tested, No Motor Deficits, Normal Affect, Normal Mood, No Sensory Deficits Cerebellar Function: Normal Reflexes: Normal Skin: Dry, Normal Color, Warm Lymphatic: No Adenopathy Was a procedure done? Was a procedure done?: No Differential Dx Considerations may include: new onset diabetes, dka, HONKS X-Ray, Labs, Meds, VS Vital Signs Date Time Temp Pulse Resp B/P (MAP) Pulse Ox O2 Delivery O2 Flow Rate FiO2 04/02/24 17:39 76 12/28/24 17:36 98.1 90 20 154/101 (118) 96 Lab Test 04/02/24 18:43 Range/Units White Blood Count 7.6 4.4-10.8 10^3/uL Red Blood Count 4.77 4.0-5.20 10^6/uL Hemoglobin 12.4 12.2-16.2 g/dL Hematocrit 38.2 36.0-46.0 % Mean Corpuscular Volume 80.1 80.0-100.0 fL Mean Corpuscular Hemoglobin 26.0 L 28.0-32.0 pg Mean Corpuscular Hemoglobin Concent 32.5 32.0-36.0 g/dL Red Cell Distribution Width 18.6 H 11.8-14.3 % Platelet Count 226 140-450 10^3/uL Mean Platelet Volume 8.2 6.9-10.8 fL Neutrophils (%) (Auto) 45.9 37.0-80.0 % Lymphocytes (%) (Auto) 31.6 10.0-50.0 % Monocytes (%) (Auto) 15.2 H 0.0-12.0 % Eosinophils (%) (Auto) 6.8 0.0-7.0 % Basophils (%) (Auto) 0.5 0.0-2.0 % Neutrophils # (Auto) 3.5 1.6-8.6 10 ^3/uL Lymphocytes # (Auto) 2.4 0.4-5.4 10 ^3/uL Monocytes # (Auto) 1.2 0-1.3 10 ^3/uL Eosinophils # (Auto) 0.5 0-0.8 10 ^3/uL Basophils # (Auto) 0 0-0.2 10 ^3/uL Nucleated Red Blood Cells 0.4 % Sodium Level 135 L 136-145 mmol/L Potassium Level 4.5 3.5-5.1 mmol/L Chloride Level 102 98-107 mmol/L Carbon Dioxide Level 26 20-31 mmol/L Anion Gap 7 5-15 Blood Urea Nitrogen 6 L 9-23 mg/dL Creatinine 0.77 0.550-1.02 mg/dL Glomerular Filtration Rate Calc 101 >90 mL/min BUN/Creatinine Ratio 7.8 L 10.0-20.0 Serum Glucose 267 H 74-106 mg/dL Calcium Level 9.6 8.7-10.4 mg/dL Total Bilirubin 0.3 0.2-1.0 mg/dL Aspartate Amino Transferase (AST) 114 H 13-40 U/L Alanine Aminotransferase (ALT) 94 H 7-40 U/L Alkaline Phosphatase 71 46-116 U/L Total Protein 6.9 5.7-8.2 g/dL Albumin 4.2 3.2-4.8 g/dL Time of 1ST Reevaluation: 18:59 Reevaluation 1ST: Unchanged Time of 2ND Reevaluation: 21:35 Reevaluation 2ND: Improved Patient Education/Counseling: Diagnosis, Treatment, Prognosis, Need For Follow Up Family Education/Counseling: No Family Present Additional Information - I reviewed the following notes from patient's past medical encounters: 11/11/23 for Ankle sprain - The following tests were ordered, and results were reviewed by me: CBC, CMP, EKG - I discussed treatments and results with medical personnel. pt is being watched by her doctor for possible diabetes. she now appears to have diabetes. i will start her on metformin. she is not dehydrated, nor in DKA, nor has any active symptoms Departure 1 Departure Time of Disposition: 21:36 Impression: Primary Impression: New onset type 2 diabetes mellitus Disposition: 01 HOME / SELF CARE / HOMELESS Condition: Good e-Prescriptions Metformin Hydrochloride (Metformin Hcl) 500 Mg Tab 1 TAB PO BID for 30 Days, #60 TAB 3 Refills Prov: CHAY YODER MD 04/02/24 Discharged With: Self Critical Care Note Critical Care Time?: No Stability Stability form required: No Heart Score Heart Score: Heart Score Response (Comments) Value History N/A 0 EKG N/A 0 Age N/A 0 Risk Factors N/A 0 Troponin N/A 0 Total 0 I personally scribed for CHAY YODER MD ([email or web address]) on 04/02/24 at 18:02. Electronically submitted by Aleksey Ray ([email or web address]). CHAY YODER MD Apr 02, 2024 18:02
[2024-04-02 19:30] LABS: Basophils # (auto) 0 10 ^3/uL (0-0.2); Eosinophils # (auto) 0.5 10 ^3/uL (0-0.8); White Blood Cell 7.6 10^3/uL (4.4-10.8)
[2024-04-02 19:32] LABS: Basophils % (auto) 0.5 % (0.0-2.0); Eosinophils % (auto) 6.8 % (0.0-7.0); Hematocrit 38.2 % (36.0-46.0); Hemoglobin 12.4 g/dL (12.2-16.2); Lymphocytes # (auto) 2.4 10 ^3/uL (0.4-5.4); Lymphocytes % (auto) 31.6 % (10.0-50.0); Mean Corpuscular Hgb Conc. 32.5 g/dL (32.0-36.0); Mean Corpuscular Volume 80.1 fL (80.0-100.0); Monocytes # (auto) 1.2 10 ^3/uL (0-1.3); Monocytes % (auto) 15.2 % (0.0-12.0); Neutrophils # (auto) 3.5 10 ^3/uL (1.6-8.6); Neutrophils % (auto) 45.9 % (37.0-80.0); Nucleated Red Blood Cells % 0.4 %; Platelet Count (auto) 226 10^3/uL (140-450); Red Blood Cells 4.77 10^6/uL (4.0-5.20); Red Cell Distribution Width 18.6 % (11.8-14.3)
[2024-04-02 19:45] LABS: Albumin 4.2 g/dL (3.2-4.8); Alkaline Phosphatase 71 U/L (46-116); Anion Gap 7 (5-15); BUN/Creatinine Ratio 7.8 (10.0-20.0); Bilirubin, Total 0.3 mg/dL (0.2-1.0); Calcium 9.6 mg/dL (8.7-10.4); Carbon Dioxide 26 mmol/L (20-31); Chloride 102 mmol/L (98-107); Potassium 4.5 mmol/L (3.5-5.1); Total Protein 6.9 g/dL (5.7-8.2)
[2024-04-02 19:46] LABS: Alanine Aminotransferase 94 U/L (7-40); Aspartate Aminotransferase 114 U/L (13-40); Blood Urea Nitrogen 6 mg/dL (9-23); Glucose 267 mg/dL (74-106); Sodium 135 mmol/L (136-145)
[2024-04-02] MEDS ORDERED: METF-370 PO (21:37)
--- NOTE | 2024-04-07 17:02 | ECG ---
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
== END 2024-04-02 23:31 | disposition home or self-care (01) ==
LOC: ER 17:25
DX: E11.9 Type 2 diabetes mellitus without complications (principal); F20.9 Schizophrenia, unspecified; J45.909 Unspecified asthma, uncomplicated; K21.9 Gastro-esophageal reflux disease without esophagitis; Z86.73 Personal history of transient ischemic attack (TIA), and cerebral infarction without residual deficits; Z87.440 Personal history of urinary (tract) infections; Z79.02 Long term (current) use of antithrombotics/antiplatelets; Z79.899 Other long term (current) drug therapy; Z88.5 Allergy status to narcotic agent; Z98.51 Tubal ligation status; Z88.8 Allergy status to other drugs, medicaments and biological substances
CPT/HCPCS: 36415; 80053; 85025; 93005

== ENCOUNTER 2024-06-17 13:34 | Emergency (ER) | payer MEDICAID ==
[~2024-06-17] VITALS: Ht 152.4 cm; Wt 110.0 kg
[~2024-06-17 13:34] MED LIST changes: +METF-370 PO
[2024-06-17 14:11] LABS: Urine Bacteria None Seen /hpf (None Seen)
[2024-06-17 14:29] LABS: Urine Blood Negative /uL (Negative); Urine Clarity Clear (Clear); Urine Color Yellow (Yellow); Urine Mucus FEW (None Seen); Urine Protein, UAD 1+ (Negative); Urine Specific Gravity 1.035 (1.001-1.035); Urine Squamous Epithelial Cell FEW /hpf (<5); Urine Urobilinogen 2 mg/dL (Negative); Urine WBC 4 /HPF (0-5); Urine pH 5.5 (5.0-9.0)
[2024-06-17 14:41] VITALS: BP 126/91; PULSE 113; RESP 18; TEMP 97.5; O2SAT 95
--- NOTE | 2024-06-17 14:54 | ED.PDOC ---
General HPI Comments A 38 YEAR OLD FEMALE PRESENTS TO THE ED WITH COMPLAINT OF UTI SYMPTOMS. PATIENT STATES SHE HAS BEEN EXPERIENCING PAINFUL URINATION WITH A BURNING SENSATION, AND A FOUL URINE ODOR FOR THE PAST 1 WEEK. PATIENT NOTED HER SYMPTOMS STARTED AFTER SHE STARTED HER MENSTRUAL PERIOD 1 WEEK AGO. PATIENT DENIES HEMATURIA, FLANK PAIN, FEVER, CHILLS, SHORTNESS OF BREATH, CHEST PAIN, ABDOMINAL PAIN, NAUSEA, VOMITING, HEADACHE, OR OTHER COMPLAINTS. NO OTHER SYMPTOMS OR MODIFYING FACTORS AT THIS TIME. PATIENT IS ALERT, ORIENTED X 4, AND HAS STEADY GAIT. Chief Complaint: Urinary Time Seen by MD: 14:08 Primary Care Provider: JOSH Reviewed notes: Nurses Notes, Medications, Allergies Allergies: Coded Allergies: Latex (Verified Allergy, Unknown, 11/11/23) Meperidine (Verified Allergy, Unknown, 08/24/17) Home Meds Active Scripts Metformin Hydrochloride (Metformin Hcl) 500 Mg Tab, 1 TAB PO BID for 30 Days, #60 TAB 3 Refills Prov:CHAY YODER MD 04/02/24 Ibuprofen Micronized (Ibuprofen) 600 Mg Tab, 600 MG PO TIDWM for 10 Days, #30 TAB 0 Refills Prov:KRISTINE LUCAS NP 11/11/23 Cyclobenzaprine Hcl (Cyclobenzaprine Hcl) 10 Mg Tab, 10 MG PO TIDPRN PRN, #20 TAB Prov:PARIS PRAKASH 10/20/23 Reported Medications Tramadol Hcl (Tramadol Hcl) 50 Mg Tab, 50 MG PO BID, MG 12/26/19 Ondansetron HCl (Ondansetron Hydrochloride) 4 Mg Tab, 4 MG PO PRN, TAB 12/26/19 Clopidogrel Bisulfate (CLOPIDOGREL) 75 Mg Tab, 75 MG PO DAILY, MG 12/26/19 Topiramate (Topiramate) 100 Mg Tab, 100 MG PO HS for 30 Days, MG 12/26/19 Fluticasone Propionate (Nasal) (Allergy Relief) 50 Mcg/Act Spr, 2 SPRAYS NA QAM, SPRAY 12/26/19 Risperidone (Risperidone) 2 Mg Tab, 1 TAB PO BID, #30 TAB 1 Refill 12/26/19 Fenofibrate (Fenofibrate) 160 Mg Tab, 1 TAB PO QAM, #30 TAB 5 Refills 12/26/19 Omeprazole (Omeprazole Dr) 40 Mg Cap, 40 MG PO QAM, CAP 12/26/19 Diphenhydramine Hcl (Banophen) 25 Mg Cap, 25 MG PO QPM, CAP 01/20/18 Albuterol Sulfate (VENTOLIN MDI) 90 Mcg Ih, 2 PUFF IN Q4HPRN PRN for SHORTNESS OF BREATH 11/18/17 Amitriptyline Hcl (Amitriptyline Hcl) 50 Mg Tab, 1 TAB PO QPM, #30 TAB 1 Refill 11/18/17 Divalproex Sodium (Depakote) 500 Mg Tab, 1 TAB PO BID, #60 TAB 1 Refill 11/18/17 Information Source: Patient Mode of Arrival: Ambulatory Severity: Moderate Inability to void: None Timing: Days Duration: Since onset, Days Prehospital treatment: None Onset: Spontaneous Symptoms: Dysuria, Other (FOUL URINE ODOR) History of: UTI Location: Suprapubic Modifying factors: None associated signs and symptoms: Dysuria Past Medical History PAST MEDICAL HISTORY: Anxiety, Asthma, DM, GERD, Schizophrenia, Seizures, TIA, UTI'S Surgical History: Tubal Ligation 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 History Family History Family History: Reviewed,noncontributory to illness, No family hx of Cancer, No family hx of HTN, No family hx of Lung yoanna, Family hx of DM Social History Smoker: Non-Smoker Alcohol: Occasionally Drugs: Denies Drug Use Lives In: Home Constitutional: denies: chills, diaphoresis, fatigue, fever, malaise, sweats, weakness, others EENTM: denies: blurred vision, double vision, ear bleeding, ear discharge, ear drainage, ear pain, ear ringing, eye pain, eye redness, hearing loss, mouth pain, mouth swelling, nasal discharge, nose bleeding, nose congestion, nose pain, photophobia, tearing, throat pain, throat swelling, voice changes, others Respiratory: denies: cough, hemoptysis, orthopnea, SOB at rest, shortness of breath, SOB with excertion, stridor, wheezing, others Cardiovascular: denies: chest pain, dizzy spells, diaphoresis, Dyspnea on exertion, edema, irregular heart beat, left arm pain, lightheadedness, palpitations, PND, syncope, others Gastrointestinal: denies: abdomen distended, abdominal pain, blood streaked bowels, constipated, diarrhea, dysphagia, difficulty swallowing, hematemesis, melena, nausea, poor appetite, poor fluid intake, rectal bleeding, rectal pain, vomiting, others Genitourinary: reports: burning, dysuria, pain (SUPRAPUBIC PRESSURE), others (FOUL URINE ODOR); denies: abnormal vagina bleeding, dyspareunia, flank pain, frequency, hematuria, incontinence, , vagina discharge, urgency Neurological: denies: dizziness, fainting, headache, left sided numbness, left sided weakness, numbness, paresthesia, pre-existing deficit, right sided numbness, right sided weakness, seizure, speech problems, tingling, tremors, weakness, others Musculoskeletal: denies: back pain, gout, joint pain, joint swelling, muscle pain, muscle stiffness, neck pain, others Integumetry: denies: bruises, change in color, change in hair/nails, dryness, laceration, lesions, lumps, rash, wounds, others Allergic/Immunocompromised: denies: Difficulty Healing, Frequent Infections, Hives, Itching, others Hematologic/Lymphatic: denies: anemia, blood clots, easy bleeding, easy bruising, swollen glands, others Endocrine: denies: excessive hunger, excessive sweating, excessive thirst, excessive urination, flushing, intolerance to cold, intolerance to heat, unexplained weight gain, unexplained weight loss, others Psychiatric: denies: anxiety, bipolar disorder, depression, hopeless, panic disorder, schizophrenia, sleepless, suicidal, others All Other Systems: Reviewed and Negative Physical Exam General Appearance: No Apparent Distress, Obese HEENT: Normal ENT Inspection, PERRL/EOMI, Pharynx Normal, TMs Normal Neck: Full Range of Motion, Non-Tender, Normal, Normal Inspection Respiratory: Chest Non-Tender, Lungs Clear, No Accessory Muscle Use, No Respiratory Distress, Normal Breath Sounds Cardiovascular: No Edema, No JVD, No Murmur, No Gallop, Normal Peripheral Pulses, Regular Rate/Rhythm Breast Exam: Deferred Gastrointestinal: No Organomegaly, No Pulsatile Mass, Normal Bowel Sounds, Soft, Suprapubic, Tenderness (AND PRESSURE ON SUPRAPUBIC, NO GUARDING AND REBOUND TENDERNESS. 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 Was a procedure done?: No Differential Diagnosis Kidney stone (Female): N/A Kidney stone (Male): N/A Penile/Scrotal: N/A Urinary Problem (Male): N/A Urinary Problem (Female): Pyelonephritis, Urolithiasis, UTI, Vaginitis X-Ray, Labs, Meds, VS Vital Signs Date Time Temp Pulse Resp B/P (MAP) Pulse Ox O2 Delivery O2 Flow Rate FiO2 06/17/24 14:41 113 18 95 Room Air 06/17/24 14:41 97.5 113 18 126/91 (103) 95 97.5 Lab Test 06/17/24 13:56 Range/Units Urine Color Yellow Yellow Urine Clarity Clear Clear Urine pH 5.5 5.0-9.0 Urine Specific [place] 1.035 1.001-1.035 Urine Protein 1+ H Negative Urine Ketones 1+ H Negative Urine Blood Negative Negative /uL Urine Nitrite Negative Negative Urine Bilirubin Negative Negative Urine Urobilinogen 2 H Negative mg/dL Urine Leukocyte Esterase Negative Negative /uL Urine RBC 5 0 - 4 /hpf Urine Microscopic WBC 4 0-5 /HPF Urine Squamous Epithelial Cells Few <5 /hpf Urine Bacteria None seen None Seen /hpf Urine Mucus Few None Seen Urine Glucose Normal Normal mg/dL X-Ray, Labs, Meds, VS Comment EXTERNAL MEDICAL RECORDS REVIEWED: [NONE] INDEPENDENT HISTORIANS: [NONE] SOCIAL DETERMINANTS OF HEALTH: [NONE] LABS ORDERED: UA REVIEWED AND INTERPRETED RESULTS: NORMAL IMAGING ORDERED: NONE TREATMENTS ORDERED: TORADOL 60MG IM PROCEDURES PERFORMED: NONE CRITICAL CARE TIME: NONE I HAVE DISCUSSED THE PATIENT WITH THE ATTENDING PHYSICIAN DR. LY AND HE AGREES WITH THE PATIENT'S PLAN OF CARE AND DISPOSITION. BASED ON HISTORY OF PRESENT ILLNESS, AND PHYSICAL EXAM, PATIENT WILL BE DISCHARGED HOME. SHARED DECISION MAKING: PATIENT INSTRUCTED TO FOLLOW UP WITH PRIMARY CARE PROVIDER IN 1-2 DAYS FOR RE-EVALUATION OF SYMPTOMS. PATIENT VERBALIZES UNDERSTANDING TO RETURN TO ED FOR NEW OR WORSENING SYMPTOMS OR IF FOLLOW UP WITH PCP CANNOT BE OBTAINED. PATIENT FEELS COMFORTABLE GOING HOME AT THIS TIME. ALL QUESTIONS ADDRESSED AT TIME OF DISCHARGE. Time of 1ST Reevaluation: 15:30 Reevaluation 1ST: Improved Patient Education/Counseling: Diagnosis, Treatment, Need For Follow Up Family Education/Counseling: Diagnosis, Treatment, Need For Follow Up Medical Screening: No EMC Exist At This Time Departure 1 Departure Time of Disposition: 15:30 Impression: Primary Impression: Acute cystitis Qualified Codes: N30.00 - Acute cystitis without hematuria Disposition: HOME / SELF CARE / HOMELESS Condition: Stable Additional Instructions: FOLLOW-UP WITH PCP IN 1 TO 2 DAYS. TAKE MEDICATIONS PRESCRIBED. RETURN TO ED FOR ANY NEW OR WORSENING SYMPTOMS. e-Prescriptions Phenazopyridine HCl (Phenazopyridine Hydrochlo) 200 Mg Tab 200 MG PO TID, #6 TAB Prov: MARY HESS 06/17/24 Sulfamethoxazole W/Trimethopri (Bactrim Ds Tablet) 1 Tab Tb 1 TAB PO BID, #14 TAB Prov: MARY HESS 06/17/24 Discharged With: Self Critical Care Note Critical Care Time?: No Stability Stability form required: No I personally scribed for MARY HESS ([email or web address]) on 06/17/24 at 14:54. Electronically submitted by Reg Montesinos ([email or web address]). MARY HESS Jun 17, 2024 14:54
[2024-06-17] MEDS: KETOROLAC TROMETH 60MG/2ML VIAL IM ONE (15:13)
[2024-06-17] MEDS ORDERED: PHEN-922 PO (15:13)
[2024-06-17] MEDS ORDERED: BACDST PO (15:13)
== END 2024-06-17 15:24 | disposition home or self-care (01) ==
LOC: ER 13:46
DX: N30.00 Acute cystitis without hematuria (principal); J45.909 Unspecified asthma, uncomplicated; E11.9 Type 2 diabetes mellitus without complications; F20.9 Schizophrenia, unspecified; Z79.02 Long term (current) use of antithrombotics/antiplatelets; Z79.84 Long term (current) use of oral hypoglycemic drugs; Z79.899 Other long term (current) drug therapy; Z86.73 Personal history of transient ischemic attack (TIA), and cerebral infarction without residual deficits; Z87.440 Personal history of urinary (tract) infections; Z88.5 Allergy status to narcotic agent; Z98.51 Tubal ligation status
CPT/HCPCS: 81001; 96372; 99283; J1885

== ENCOUNTER 2024-12-03 16:36 | Emergency (ER) | payer MEDICAID ==
[~2024-12-03] VITALS: Ht 152.4 cm; Wt 90.0 kg
[~2024-12-03 16:36] MED LIST changes: +BACDST PO; +PHEN-922 PO
[2024-12-03 16:49] VITALS: O2SAT 97
--- NOTE | 2024-12-03 16:55 | ED.PDOC ---
Back pain HPI HPI Comments 39-year-old female brought in by EMS presents with a chief complaint of right hip pain. Patient is a poor historian. Patient states that her right hip is "out of the socket" since October 2024, but then patient changed the story and says that its been out since May 2024. Patient mentions that she is still able to walk and had pain getting on a scale yesterday at her PCP office. Patient mentions that no one has done anything about her right hip being out of place. EMS reports that she was able to stand and sit on the gurney. PMHx: DM, HLD, GERD, Anxiety, Asthma, Schizophrenia, Seizures, TIA, UTIs PSHx: TBL, Right Ankle Surgery HPI: Poor Historian. REVIEW OF SYSTEMS: CONSTITUTIONAL: Denies acute: fever, diaphoresis, chills, generalized weakness. HEAD: Denies acute: headache, photophobia Eyes: Denies acute: Double vision, vision loss, eye pain, eye discharge. EARS: Denies acute: tinnitus, hearing loss, ear discharge, ear pain, THROAT: Denies acute: sore throat, swelling, difficulty swallowing , pain with swallowing, change in voice. NECK: Denies acute: neck pain, neck swelling, stiff neck. HEART: Denies acute : chest pain, palpitations, LUNGS: Denies acute: SOB, wheezing, cough, hemoptysis ABDOMEN: Denies acute: abdominal pain, Nausea, Vomiting, diarrhea, melena , hematemesis, hematochezia SKIN: Denies acute: rash, redness, lesions, itchiness. EXTREMITIES: Denies acute: calf pain, numbness, tingling, weakness, Denies acute: Low back pain. Neuro: Denies acute: focal neurological deficit, motor or sensory focal neurological deficit, tremors, seizure like activity, confusion, dizziness, change in mental status, loss of bowel or bladder function, cauda equina like symptoms. : Denies acute: dysuria, hematuria, flank pain, increase in urinary frequency. PSYCH: Denies acute: hallucination, suicidal ideation, homicidal ideation. FEMALE: Denies acute: abnormal vaginal bleeding, foul odor, unusual discharge. PHYSICAL EXAM: General: ----no----acute distress, awake and alert. Head: normocephalic, atraumatic. Neck: supple, trachea is midline, no swelling. Throat: Normal phonation. Eyes:, no erythema, no purulent discharge, no proptosis, no icterus. Heart: regular rate, regular rhythm, no significant murmur appreciated. Lungs: no apparent respiratory distress, Able to speak in full sentences. No wheezing, no rhonchi, no crackles. No stridors Clear to auscultation bilaterally. Abdomen: non tender to palpation, non distended, soft, no guarding, no rebound, + bowel sounds. Obese Neuro: Awake, Alert, oriented to name, self, situation, follows commands GCS=15. Speech is normal. Skin: no petechia, no purpura, no cyanosis, non-pale, not jaundice. Lower extremities: --trace - Pitting edema no deformity, no focal swelling, no calf TTP. Makes eye contact. moves all four extremities. Face: no apparent facial droop. Pedal pulses are palpable. ED COURSE: DISCLAIMER: This medical document was created using an electronic medical record system with voice recognition software and computerized dictation system. Although this document has been carefully reviewed, there might still be some phonetic and typographical errors. Occasional wrong-word or "sound-alike" substitutions may have occurred due to the inherent limitations of voice recognition software. These areas are purely typographical due to imperfections of the software programs and do not reflect any compromise in the patient's medical care. Please read the chart carefully and recognize, using context, where these substitutions have occurred. Time Seen by MD: 16:41 Primary Care Provider: JOSH Reviewed Notes: Medications, Allergies Allergies: Coded Allergies: Latex (Verified Allergy, Unknown, 11/11/23) Meperidine (Verified Allergy, Unknown, 08/24/17) Home Meds Active Scripts Phenazopyridine HCl (Phenazopyridine Hydrochlo) 200 Mg Tab, 200 MG PO TID, #6 TAB Prov:MARY HESS 06/17/24 Sulfamethoxazole W/Trimethopri (Bactrim Ds Tablet) 1 Tab Tb, 1 TAB PO BID, #14 TAB Prov:MARY HESS 06/17/24 Metformin Hydrochloride (Metformin Hcl) 500 Mg Tab, 1 TAB PO BID for 30 Days, #60 TAB 3 Refills Prov:CHAY YODER MD 04/02/24 Ibuprofen Micronized (Ibuprofen) 600 Mg Tab, 600 MG PO TIDWM for 10 Days, #30 TA B 0 Refills Prov:LANCEKRISTINE LEADING FIREFIGHTER 11/11/23 Cyclobenzaprine Hcl (Cyclobenzaprine Hcl) 10 Mg Tab, 10 MG PO TIDPRN PRN, #20 TAB Prov:PARIS PRAKASH PAC 10/20/23 Reported Medications Tramadol Hcl (Tramadol Hcl) 50 Mg Tab, 50 MG PO BID, MG 12/26/19 Ondansetron HCl (Ondansetron Hydrochloride) 4 Mg Tab, 4 MG PO PRN, TAB 12/26/19 Clopidogrel Bisulfate (CLOPIDOGREL) 75 Mg Tab, 75 MG PO DAILY, MG 12/26/19 Topiramate (Topiramate) 100 Mg Tab, 100 MG PO HS for 30 Days, MG 12/26/19 Fluticasone Propionate (Nasal) (Allergy Relief) 50 Mcg/Act Spr, 2 SPRAYS NA QAM, SPRAY 12/26/19 Risperidone (Risperidone) 2 Mg Tab, 1 TAB PO BID, #30 TAB 1 Refill 12/26/19 Fenofibrate (Fenofibrate) 160 Mg Tab, 1 TAB PO QAM, #30 TAB 5 Refills 12/26/19 Omeprazole (Omeprazole Dr) 40 Mg Cap, 40 MG PO QAM, CAP 12/26/19 Diphenhydramine Hcl (Banophen) 25 Mg Cap, 25 MG PO QPM, CAP 01/20/18 Albuterol Sulfate (VENTOLIN MDI) 90 Mcg Ih, 2 PUFF IN Q4HPRN PRN for SHORTNESS OF BREATH 11/18/17 Amitriptyline Hcl (Amitriptyline Hcl) 50 Mg Tab, 1 TAB PO QPM, #30 TAB 1 Refill 11/18/17 Divalproex Sodium (Depakote) 500 Mg Tab, 1 TAB PO BID, #60 TAB 1 Refill 11/18/17 Information Source: Patient Mode of Arrival: EMS Past Medical History PAST MEDICAL HISTORY: Anxiety, Asthma, DM, GERD, Schizophrenia, Seizures, TIA, UTI'S Surgical History: Tubal Ligation DIRECTOR POST History: No Pertinent DIRECTOR POST History Family History Family History: Reviewed,noncontributory to illness, No family hx of Cancer, No family hx of HTN, No family hx of Lung yoanna, Family hx of DM Social History Smoker: Non-Smoker Alcohol: Occasionally Drugs: Denies Drug Use Lives In: Home Was a procedure done? Was a procedure done?: No Back Pain Differential Dx Differential Diagnosis: Fracture, Musculoskeletal Pain, Other (Dislocation, neurovascular injury, hematoma, bruise, ligamental tendon injury, septic joint) X-Ray, Labs, Meds, VS Vital Signs Date Time Temp Pulse Resp B/P (MAP) Pulse Ox O2 Delivery O2 Flow Rate FiO2 12/03/24 18:40 97.9 82 17 114/69 (84) 97.9 12/03/24 16:49 98.0 85 16 113/68 97 98.0 Lab Test 12/03/24 17:10 Range/Units White Blood Count 8.0 4.4-10.8 10^3/uL Red Blood Count 5.06 4.0-5.20 10^6/uL Hemoglobin 10.8 L 12.2-16.2 g/dL Hematocrit 34.6 L 36.0-46.0 % Mean Corpuscular Volume 68.4 L 80.0-100.0 fL Mean Corpuscular Hemoglobin 21.4 L 28.0-32.0 pg Mean Corpuscular Hemoglobin Concent 31.3 L 32.0-36.0 g/dL Red Cell Distribution Width 18.9 H 11.8-14.3 % Platelet Count 506 H 140-450 10^3/uL Mean Platelet Volume 7.6 6.9-10.8 fL Neutrophils (%) (Auto) 58.6 37.0-80.0 % Lymphocytes (%) (Auto) 32.0 10.0-50.0 % Monocytes (%) (Auto) 9.2 0.0-12.0 % Eosinophils (%) (Auto) 0.0 0.0-7.0 % Basophils (%) (Auto) 0.2 0.0-2.0 % Neutrophils # (Auto) 4.7 1.6-8.6 10 ^3/uL Lymphocytes # (Auto) 2.6 0.4-5.4 10 ^3/uL Monocytes # (Auto) 0.7 0-1.3 10 ^3/uL Eosinophils # (Auto) 0 0-0.8 10 ^3/uL Basophils # (Auto) 0 0-0.2 10 ^3/uL Nucleated Red Blood Cells 0.0 % Sodium Level 141 136-145 mmol/L Potassium Level 4.1 3.5-5.1 mmol/L Chloride Level 104 98-107 mmol/L Carbon Dioxide Level 28 20-31 mmol/L Anion Gap 9 5-15 Blood Urea Nitrogen 7 L 9-23 mg/dL Creatinine 0.70 0.550-1.02 mg/dL Glomerular Filtration Rate Calc 113 >90 mL/min BUN/Creatinine Ratio 10.0 10.0-20.0 Serum Glucose 92 74-106 mg/dL Calcium Level 9.1 8.7-10.4 mg/dL Total Bilirubin 0.4 0.2-1.0 mg/dL Aspartate Amino Transferase (AST) 29 13-40 U/L Alanine Aminotransferase (ALT) 20 7-40 U/L Alkaline Phosphatase 88 46-116 U/L Total Protein 7.2 5.7-8.2 g/dL Albumin 4.2 3.2-4.8 g/dL PATIENT: YASSINE FERNANDEZ ACCT: [id number] UNIT: [id number] : 1985 LOC: ER ROOM / BED: / AGE / SEX: 39 / F ADM STATUS: REG ER SERVICE 1644 ORDERING PHYSICIAN: MAGGIE JEAN DO PROCEDURE(s): ABPL - CT AB PEL WO CON-NO ORAL OR IV REASON: R HIP PAIN ORDER NUMBER(s): [id number], ACCESSION NUMBER(s): [id number] COMPUTERIZED TOMOGRAPHY ABDOMEN AND PELVIS WITHOUT CONTRAST REASON FOR EXAM: R HIP PAIN COMPARISON: CT ABD PELVIS WO CONTRAST on DOS: 08/25/21 TECHNIQUE: Spiral scans were acquired from the diaphragm to the symphysis pubis without intravenous contrast administration. 2-D coronal and sagittal reformatted images were provided. Radiation optimization: All CT scans at this facility use at least one of these dose optimization techniques: Automated expos ure control mA and/or kV adjustment per patient size (includes targeted exams where dose is matched to clinical indication) or iterative reconstruction. RADIATION DOSE: CTDI: 15.93 mGy DLP: 871.44 mGy-cm FINDINGS: There is patchy ground-glass attenuation at the visualized lung bases likely due to low inspiratory volume of the time of scanning. There is no pleural e ffusion. There is no pericardial effusion. The spleen is not enlarged. The liver is normal in size and contour. Evaluation of the abdominal organs is suboptimal in the absence of intravenous contrast. No calcified gallstone is identified. There is no pericholecystic fluid. Unenhanced appearance of the pancreas is unremarkable. The adrenal glands are normal. The kidneys are similar in size. There is no hydronephrosis of either kidney. There is no renal, ureteral, or bladder calculus. The urinary bladder is unremarkable. There is no abdominal aortic aneurysm. There is no pathologic lymphadenopathy by size criteria. No free fluid is identified in the abdomen or pelvis. The colonic stool burden is small. The appendix is normal. There is no distention of the small bowel. No acute abnormality of the uterus or ovaries. 2 surgical clips are noted in the right adnexa. No acute osseous abnormality is identified. There is a limbus vertebra at L5. There is trace right hip effusion. There is subtle irregularity at the superior aspect of the right femoral head with peripheral sclerosis that may represent avascular necrosis. IMPRESSION: Subtle irregularity of the superior aspect of the right femoral head with peripheral sclerosis that may represent avascular necrosis. Consider further evaluation with MRI. ATED BY: TAWANDA LAWS MD DICTATED DATE/TIME: 12/03/241800 SIGNED BY: TAWANDA LAWS MD SIGNED DATE/TIME: 12/03/241800 Time of 1ST Reevaluation: 17:11 Reevaluation 1ST: Unchanged Patient Education/Counseling: Diagnosis, Treatment Family Education/Counseling: No Family Present Comments MDM: patient presented with the above HPI.-right hip pain-----workup was initiated. patient was found with the above mentioned diagnosis. the following medications were ordered: please refer to order lists of meds and tests obtained by myself Dr. Jean. Patient ED course and VS have been stabilized. Patient has been reassessed in the ED and remained in a stable condition. Pertinent incidental findings were discussed with the patient and/or family. Patient/family voices understanding and is agreeable with plan. Patient has been observed in the ED adequate length of time to insure imp rovement/stability. Escalation of care considered: Consideration of escalation to observation or admission No acute findings. Patient was DISCHARGED home in a stable condition. All the reports of any imaging studies that were ordered by myself were reviewed by myself. Departure 1 Departure Time of Disposition: 17:57 Impression: Primary Impression: Right hip pain Disposition: 01 HOME / SELF CARE / HOMELESS Condition: Stable Additional Instructions: Additional instructions: Please read all instructions provided in this packet carefully. You MUST follow-up with your primary care/family doctor in 1 to 2 days. If you are unable to see your primary care/family doctor, please return to our emergency room for re-assessment and re-evaluation in 1 to 2 days. Return to the emergency room here in our facility or to the nearest ER [facility] if your symptoms change or worsen. CONSULTATIONS: you MUST Follow-up for consultation as soon as possible with: -psychiatry and pain management and orthopedic doctor in 1-2 days. Please call for appointment. You MUST call the consultants office yourself to make an appointment. You may need to arrange that through your insurance and/or your primary/family doctor. If you are unable to see the industrial rehabilitation consultant in 1 to 2 days, you must return to our emergency room (or any other ER of your choice) for re-assessment and re-e valuation. Adequate fluid hydration. Although you have been discharged from the Emergency Department, this does not mean that you have a "clean bill of health". No definitive diagnosis for your symptoms has been made today. It is possible that you are in the process of developing a serious illness. This is why you must return to the ED without fail if any new or worsening symptoms develop. Below is a copy of your radiological report for follow up: [address] [address] Ph: [phone] DIAGNOSTIC IMAGING Diagnostic Imaging Report : [id number] Signed PATIENT: YASSINE FERNANDEZ ACCT: [id number] UNIT: [id number] : 1985 LOC: ER ROOM / BED: / AGE / SEX: 39 / F ADM STATUS: REG ER SERVICE [id number] ORDERING PHYSICIAN: MAGGIE JEAN DO PROCEDURE(s): ABPL - CT AB PEL WO CON-NO ORAL OR IV REASON: R HIP PAIN ORDER NUMBER(s): [id number], ACCESSION NUMBER(s): [id number] COMPUTERIZED TOMOGRAPHY ABDOMEN AND PELVIS WITHOUT CONTRAST REASON FOR EXAM: R HIP PAIN COMPARISON: CT ABD PELVIS WO CONTRAST on DOS: 08/25/21 TECHNIQUE: Spiral scans were acquired from the diaphragm to the symphysis pubis without intravenous contrast administration. 2-D coronal and sagittal reformatted images were provided. Radiation optimization: All CT scans at this facility use at least one of these dose optimization techniques: Automated exposure control mA and/or kV adjustment per patient size (includes targeted exams where dose is matched to clinical indication) or iterative reconstruction. RADIATION DOSE: CTDI: 15.93 mGy DLP: 871.44 mGy-cm FINDINGS: There is patchy ground-glass attenuation at the visualized lung bases likely due to low inspiratory volume of the time of scanning. There is no pleural effusion. There is no pericardial effusion. The spleen is not enlarged. The liver is normal in size and contour. Evaluation of the abdominal organs is suboptimal in the absence of intravenous contrast. No calcified gallstone is identified. There is no pericholecystic fluid. Unenhanced appearance of the pancreas is unremarkable. The adrenal glands are normal. The kidneys are similar in size. There is no hydronephrosis of either kidney. There is no renal, ureteral, or bladder calculus. The urinary bladder is unremarkable. There is no abdominal aortic aneurysm. There is no pathologic lymphadenopathy by size criteria. No free fluid is identified in the abdomen or pelvis. The colonic stool burden is small. The appendix is normal. There is no distention of the small bowel. No acute abnormality of the uterus or ovaries. 2 surgical clips are noted in the right adnexa. No acute osseous abnormality is identified. There is a limbus vertebra at L5. There is trace right hip effusion. There is subtle irregularity at the superior aspect of the right femoral head with peripheral sclerosis that may represent avascular necrosis. IMPRESSION: Subtle irregularity of the superior aspect of the right femoral head with peripheral sclerosis that may represent avascular necrosis. Consider further evaluation with MRI. ATED BY: TAWANDA LAWS MD DICTATED DATE/TIME: 12/03/24 180 SIGNED BY: TAWANDA LAWS MD SIGNED DATE/TIME: 12/03/24 1801 CC: Discharged With: Self Critical Care Note Critical Care Time?: No I personally scribed for MAGGIE JEAN DO ([email or web address]) on 12/03/24 at 16:55. Electronically submitted by Mahesh Ang ([email or web address]). I personally scribed for MAGGIE JEAN DO ([email or web address]) on 12/03/24 at 19:07. Electronically submitted by Mahesh Ang ([email or web address]). MAGGIE JEAN DO Dec 03, 2024 16:55
[2024-12-03 17:35] LABS: Hematocrit 34.6 % (36.0-46.0); Hemoglobin 10.8 g/dL (12.2-16.2); Mean Corpuscular Hemoglobin 21.4 pg (28.0-32.0); Mean Corpuscular Volume 68.4 fL (80.0-100.0); Nucleated Red Blood Cells % 0.0 %
[2024-12-03 17:50] LABS: Alanine Aminotransferase 20 U/L (7-40); Albumin 4.2 g/dL (3.2-4.8); Alkaline Phosphatase 88 U/L (46-116); Anion Gap 9 (5-15); BUN/Creatinine Ratio 10.0 (10.0-20.0); Calcium 9.1 mg/dL (8.7-10.4); Carbon Dioxide 28 mmol/L (20-31); Chloride 104 mmol/L (98-107); Glucose 92 mg/dL (74-106); Potassium 4.1 mmol/L (3.5-5.1); Sodium 141 mmol/L (136-145); Total Protein 7.2 g/dL (5.7-8.2)
[2024-12-03 17:51] LABS: Bilirubin, Total 0.4 mg/dL (0.2-1.0); Blood Urea Nitrogen 7 mg/dL (9-23)
--- NOTE | 2024-12-03 18:03 | DVH ---
COMPUTERIZED TOMOGRAPHY ABDOMEN AND PELVIS WITHOUT CONTRAST REASON FOR EXAM: R HIP PAIN COMPARISON: CT ABD PELVIS WO CONTRAST on DOS: 08/25/21 TECHNIQUE: Spiral scans were acquired from the diaphragm to the symphysis pubis without intravenous c ontrast administration. 2-D coronal and sagittal reformatted images were provided. Radiation optimiza tion: All CT scans at this facility use at least one of these dose optimization techniques: Automated exposure control mA and/or kV adjustment per patient size (includes targeted exams where dose is mat ched to clinical indication) or iterative reconstruction. RADIATION DOSE: CTDI: 15.93 mGy DLP: 871.44 mGy-cm FINDINGS: There is patchy ground-glass attenuation at the visualized lung bases likely due to low inspiratory v olume of the time of scanning. There is no pleural effusion. There is no pericardial effusion. The spleen is not enlarged. The liver is normal in size and contour. Evaluation of the abdominal org ans is suboptimal in the absence of intravenous contrast. No calcified gallstone is identified. Ther e is no pericholecystic fluid. Unenhanced appearance of the pancreas is unremarkable. The adrenal gla nds are normal. The kidneys are similar in size. There is no hydronephrosis of either kidney. There is no renal, ureteral, or bladder calculus. The urinary bladder is unremarkable. There is no abdomi nal aortic aneurysm. There is no pathologic lymphadenopathy by size criteria. No free fluid is ident ified in the abdomen or pelvis. The colonic stool burden is small. The appendix is normal. There is no distention of the small bowel. No acute abnormality of the uterus or ovaries. 2 surgical clips are noted in the right adnexa. No acute osseous abnormality is identified. There is a limbus vertebra at L5. There is trace right hip effusion. There is subtle irregularity at the superior aspect of the ri ght femoral head with peripheral sclerosis that may represent avascular necrosis. IMPRESSION: Subtle irregularity of the superior aspect of the right femoral head with peripheral sclerosis that m ay represent avascular necrosis. Consider further evaluation with MRI.
[2024-12-03 18:40] VITALS: BP 114/69; PULSE 82; RESP 17; TEMP 97.9
== END 2024-12-03 18:56 | disposition home or self-care (01) ==
LOC: EDBD 16:36 → EDUNIT# 16:36 → ER 16:38
DX: M25.551 Pain in right hip (principal); J45.909 Unspecified asthma, uncomplicated; E11.9 Type 2 diabetes mellitus without complications; Z86.73 Personal history of transient ischemic attack (TIA), and cerebral infarction without residual deficits; Z79.899 Other long term (current) drug therapy; Z88.5 Allergy status to narcotic agent; Z91.040 Latex allergy status
CPT/HCPCS: 36415; 74176; 80053; 85025